=== PATIENT | male | born 1970 | race Caucasian/White ===

== ENCOUNTER 2017-06-30 15:44 | Inpatient (IN) | payer BC ==
[~2017-06-30] VITALS: Ht 182.9 cm; Wt 112.9 kg
--- NOTE | ~2017-06-30 | HEMODYNAMI ---
PATIENT:ALIS GOTTI JR MEDICAL RECORD: [id number] : 68 LOCATION:[facility] D.2140 ADMISSION DATE: 06/30/17 Generatedon:07/20/201715:52 Patient name: ALIS GOTTI Patient #: [id number] SSN: D OB: 1970 Date of study: 07/20/2017 Page: Of Hemodynamic Procedure Report Patient Data Patient Demographics Procedure consent was obtained First Name: ALIS Gender: Male Last Name: SHEN Suffix: Jr Saleem Initial: KELLY : 1970 Patient #: [id number] Age: 46 year(s) Race: Additional ID: [id number] Contact details Address: [address] [place] [address] [facility] State: [place] City: [facility] Zip code: [address] Past Medical History Allergies Allergen Reaction Date Comments Reported Codeine 03/19/2015 Admission Admission Data Admission Date: 06/30/2017 Admission Time: 21:09 Room #: D.2140 Procedure Procedure Types Cath Procedure Peripheral Cath Diagnostic Procedure Miscellaneous Procedure Description Procedure Date Procedure Date: 07/20/2017 Procedure Start Time: 15:12 Procedure Staff Name Function Ventura Hugo MD Performing Physician Jeimy Terrazas RT Scrub Evie He RN Nurse Stevan Valdez RT Monitor Procedure Data Cath Procedure Fluoroscopy Diagnostic fluoroscopy Total fluoroscopy Time: 3.9 time: 3.9 min min Diagnostic fluoroscopy Total fluoroscopy dose: 223 dose: 223 mGy mGy Contrast Material Contrast Material Type Amount (ml) Isovue 300 5 Diagnostic catheters Device Type Used For End Catheter Placement Diagnostic Infinity 5Fr MPA-2 catheter Procedure Medications Medication Administration Route Dosage Versed I.V. 1 mg Fentanyl I.V. 50 mcg Versed I.V. 1 mg Fentanyl I.V. 50 mcg Benadryl I.V. 50 mg Versed I.V. 1 mg Fentanyl I.V. 50 mcg Fentanyl I.V. 50 mcg Versed I.V. 1 mg Hemodynamics Rest Heart Rate: 94 (bpm) Snapshots Pre Cath Intra NCS Post Cath Vital Signs Time Heart Resp SPO2 etCO2 NIBP (mmHg) Rhythm Pain Sedation Rate (ipm) (%) (mmHg) Status Level (bpm) 15:01:51 93 18 99 0 118/81(95) NSR 0 (11) 10(A) , No pain 15:06:07 92 17 100 30.1 116/83(100) NSR 0 (11) 10(A) , No pain 15:10:22 93 13 100 30.8 119/79(100) NSR 0 (11) 10(A) , No pain 15:14:37 91 5 100 33.8 120/79(102) NSR 0 (11) 10(A) , No pain 15:18:54 96 13 100 35.4 120/76(102) NSR 0 (11) 10(A) , No pain 15:21:54 95 12 100 37.6 120/82(100) NSR 0 (11) 10(A) , No pain 15:26:12 98 13 100 14.3 124/72(102) NSR 0 (11) 10(A) , No pain 15:30:26 97 13 100 20.3 124/83(102) NSR 0 (11) 10(A) , No pain 15:34:42 100 12 100 31.6 116/85(100) NSR 0 (11) 10(A) , No pain 15:38:54 97 17 100 34.6 121/90(105) NSR 0 (11) 10(A) , No pain 15:43:05 98 12 100 22.5 134/89(107) NSR 0 (11) 10(A) , No pain 15:47:24 96 12 100 23.3 126/90(106) NSR 0 (11) 10(A) , No pain 15:51:40 100 31.6 132/92(101) NSR 0 (11) 10(A) , No pain Medications Time Medication Route Dose Verified Delivered Reason Notes Effectivene ss by by 15:12:09 Versed I.V. 1 mg Ventura Case for Bethel He RN sedation 15:12:24 Fentanyl I.V. 50 Ventura Case for mcg Bethel He RN sedation 15:14:33 Versed I.V. 1 mg Ventura Evie for Bethel Gomezr RN sedation 15:14:42 Fentanyl I.V. 50 Ventura Evie for mcg Bethel Neri RN sedation 15:20:33 Benadryl I.V. 50 mg Ventura Evie for Bethel Neri RN sedation 15:20:41 Versed I.V. 1 mg Ventura Evie for Bethel Neri RN sedation 15:20:51 Fentanyl I.V. 50 Ventura Evie for mcg Bethel Neri RN sedation 15:31:22 Fentanyl I.V. 50 Ventura Evie for mcg Bethel Neri RN sedation 15:31:34 Versed I.V. 1 mg Ventura Evie for Bethel Neri RN sedation Procedure Log Time Note 14:36:08 Jeimy Terrazas RT (R) (CV) sent for patient. Start room use. 14:36:18 Time tracking: Regular hours 14:36:22 Plan of Care:Hemodynamics will remain stable., Cardiac rhythm will remain stable., Comfort level will be maintained., Respiratory function will remain adequate., Patient/ family verbilizes understanding of procedure., Procedure tolerated without complication., Recovers from procedure without complications.. 14:36:29 Patient received from [employer] to IR Alert and oriented. Tansferred to table in Supine position. 14:36:30 Correct patient and procedure confirmed by team. 14:36:32 Signed procedure consent form obtained from patient. 14:36:33 ECG and BP/O2 sat monitors applied to patient. 14:36:35 Full Disclosure recording started 14:36:35 - 14:36:38 H&P Date Dictated: 07/20/2017 Within 30 days and on chart.. 14:36:39 Pre-procedure instructions explained to patient. 14:36:39 Pre-op teaching completed and patient verbalized understanding. 14:36:41 Family unavailable. 14:36:43 Patient NPO since Midnight. 14:36:47 Is the patient allergic to Iodine/contrast media? No. 14:36:49 Is patient on blood thinner?No 14:37:31 If diabetic: On Metformin? No 14:37:33 - 14:37:34 ----Pre-sedation anethsthesia assessment.---- 14:37:36 Previous problem with sedation/anesthesia? No ? 14:37:38 Snore? Yes 14:37:39 Sleep apnea? No 14:37:41 Deviated septum? No 14:37:43 Opens mouth fully? No 14:37:44 Sticks out tongue? Yes 14:37:47 Airway obstruction? No ? 14:37:52 Airway obstruction? No ? 14:37:56 Airway obstruction? No ? 14:38:01 Dentures? No ? 14:38:14 Patient pain scale 0/10 ?. 14:38:21 Use device set IR Diagnostic 14:38:23 Sterile Angiographic Pack opened to sterile field. 14:38:24 Bag Decanter opened to sterile field. 15:00:42 ECG and BP/O2 sat monitors applied to patient. 15:00:43 Vital chart was started 15:00:45 Baseline sample Acquired. 15:00:58 IV patent on arrival in left antecubital with 0.9% NaCl at KVO. 15:00:59 Sharps counted by scrub and verified by R.N. 15:01:00 Alarms reviewed by R. N. 15:01:07 Right neck area was prepped with chlora-prep and draped in sterile fashion 15:11:01 Physician arrived 15:11:02 --------ALL STOP TIME OUT------ 15:11:03 Final Timeout: patient, procedure, and site verified with staff and physician. All members of the team are in agreement. 15:11:07 Right neck site verified by team. 15:11:11 Physical assessment completed. ASA score P 3 - A patient with severe systemic disease as per Ventura Hugo MD. 15:11:15 Sedation plan: IV Moderate Sedation Versed, Fentanyl 15:12:09 Versed 1 mg I.V. was administered by Evie He RN; for sedation; 15:12:20 Procedure started. 15:12:24 Fentanyl 50 mcg I.V. was administered by Evie He RN; for sedation ; 15:12:24 Local anesthetic to right IJ vein with Lidocaine 1% by Ventura Hugo MD.INITIAL ACCESS ONLY 15:12:42 A Diagnostic Infinity 5Fr MPA-2 catheter was advanced over the wire and used for . 15:12:43 KIT LIVER ACCESS BIOPSY W/19GX6 opened to sterile field. 15:12:44 Cook BENTSON 145cm guide wire opened to sterile field. 15:12:46 Terumo 6Fr [place] Sheath opened to sterile field. 15:12:47 Micropuncture VSI 4FR kit opened to sterile field. 15:14:33 Versed 1 mg I.V. was administered by Evie He RN; for sedation; 15:14:42 Fentanyl 50 mcg I.V. was administered by Evie He RN; for sedation ; 15:18:16 [place] [employer] AMPLATZ 260CM SHORT TAPER guide wire opened to sterile field . 15:20:33 Benadryl 50 mg I.V. was administered by Evie He RN; for sedation; 15:20:41 Versed 1 mg I.V. was administered by Evie He RN; for sedation; 15:20:51 Fentanyl 50 mcg I.V. was administered by Evie He RN; for sedation ; 15:31:22 Fentanyl 50 mcg I.V. was administered by Evie He RN; for sedation ; 15:31:34 Versed 1 mg I.V. was administered by Evie He RN; for sedation; 15:38:54 Procedure ended.(Physican Out) 15:39:17 Fluoroscopy time 03.90 minutes. 15:39:20 Fluoroscopy dose: 223 mGy 15:39:20 Flurop Dose total: 223 15:39:24 Contrast amount:Isovue 300 5ml. 15:39:26 Sharps counted by scrub and verified by R.N. 15:39:27 Insertion/operative site no bleeding no hematoma. 15:39:48 Post-op/insertion site Right Jugular vein dressed using a 4 x 4 and Tegaderm. 15:39:54 Post right IJ vein:stable 15:40:01 Post-procedure physical assessment completed. ASA score P 3 - A patient with severe systemic disease as per Ventura Hugo MD. 15:40:03 Post procedure instruction explained to patient.Patient verbalizes understanding. 15:40:05 Patient needs reinforcement of post procedure teaching. 15:40:06 Procedure and supply charges have been captured, reviewed, submitted an d are correct. 15:52:02 Report given to [facility]. 15:52:21 Patient transfered to [facility] with Bed. 15:52:42 Vital chart was stopped Device Usage Item Name Manufacture Quantity Catalog Hospital Part Current Minima l Lot# / Number Charge Number Stock Stock Serial# Code Sterile Cardinal 1 [id number] [id number] 5 Angiographic Health Pack Bag Decanter Microtek 1 [id number] 75411 235701 5 Medical Inc. Diagnostic Cardinal 1 [id number] 524114 [id number] 5 Infinity 5Fr i.Sec MPA-2 catheter KIT LIVER [facility] 1 [id number] 659822 440241 5 ACCESS BIOPSY W/19GX6 Cook [employer] 1 [id number] 349044 [id number] 5 [id number] 145cm guide wire Terumo 6Fr Terumo 1 [id number] 925170 [id number] 40 [place] Sheath Micropuncture VSI VASCULAR 1 [id number] 600409 097620 5 VSI 4FR kit SOLUTIONS [place] [employer] [place] 1 [id number] 761824 975767 470979 5 [id number] AMPLATZ 260CM Scientific SHORT TAPER guide wire Signature Audit [place] Stage Time Signature Unsigned Intra-Procedure 07/20/2017 Stevan 3:52:39 PM Courtney RT (R) (CV) Signatures Monitor : Stevan Signature : Courtney RT Date : Time : [id number] [place] [address]
[~2017-06-30 15:44] MED LIST: ACETAMINOPHEN325 MG PO; AMITRIPTYLINE PO; DELZICOL400 MG PO; FLAGYL500 MG PO; FLORAJEN3 CAPS460 MG PO; FOLIC ACID1 MG PO; HYDROCHLOROTH12.5 M1 PO; HYDROCODON-ACE1 EAC7 PO; LEVAQUIN500 MG PO; LIBRIUM25 MG PO; OMEPRAZOLE20 M1 PO; PAIN MEDICATION PO; PAXIL10 MG PO; PAXIL20 MG PO; PREPARATION H O57 GM TOPICAL; PRILOSEC20 MG PO; PRINIVIL20 MG PO; TENORMIN25 MG PO; THEREMS-M1 TAB PO; TOPROL XL50 MG PO; ULTRAM50 MG PO; VENTOLIN HFA18 GM INH; VITAMIN B-1100 M1 PO; ZESTRIL20 MG PO
[2017-06-30 17:48] LABS: HEMATOCRIT 33.3 % (42.0-54.0); HEMOGLOBIN 11.6 g/dL (13.5-17.5); MCHC 34.8 g/dL (31.0-37.0); MCV 100.6 fL (80.0-100.0); MEAN PLATELET VOLUME 10.1 fL (7.4-10.4); PLATELET COUNT 608 10x3/uL (130-400); RBC 3.31 10x6/uL (4.20-6.10); RDW 17.3 % (11.5-14.5); WBC 31.2 10x3/uL (4.8-10.8)
[2017-06-30 18:04] LABS: ALBUMIN 1.8 g/dL (3.4-5.0); ANION GAP 17.6 mmol/L (8-16); BILIRUBIN - TOTAL 13.31 mg/dL (0.2-1.3); CALCIUM 8.2 mg/dL (8.5-10.1); CARBON DIOXIDE 23.4 mmol/L (21.0-32.0); CREATININE - SERUM 3.4 mg/dL (0.6-1.3); PROTEIN - SERUM 5.6 g/dL (6.4-8.2)
[2017-06-30 18:16] LABS: EOSINOPHILS 2 % (0-7); LYMPHOCYTES 6 % (15-50); MONOCYTES 1 % (2-11); NEUTROPHILS 89 % (40-80); PLATELET ESTIMATE INCREASED; TARGET CELLS OCC
[2017-06-30 18:56] LABS: INR 1.5 (0.85-1.17)
[2017-06-30 19:01] LABS: APPEARANCE HAZY (CLEAR); BACTERIA MODERATE /hpf (NONE SEEN); BILIRUBIN 3+ (NEGATIVE); COLOR AMBER (YELLOW); GLUCOSE NEGATIVE (NEGATIVE); HYALINE CAST OCC /lpf (NONE SEEN); KETONE NEGATIVE (NEGATIVE); MUCUS <1+ /lpf (NONE SEEN); NITRITE NEGATIVE (NEGATIVE); PROTEIN NEGATIVE (NEGATIVE); RED CELLS - URINE 0-5 /hpf (0-5); WHITE CELLS - URINE 0-5 /hpf (0-5)
--- NOTE | 2017-06-30 21:20 | NUR ---
ADMISSION ASSESSMENT COMPLETE PER FLOW SHEET. ELLIE ER NURSE NOTIFIED PT IN ER BUT FURTHER CARE WOULD BE WITH HER. VSS AT THIS TIME. STATES WILL GIVE UPDATE LATER IF NEEDED.
--- NOTE | 2017-06-30 22:45 | NUR ---
INFORMED BY CLARIFIER, TANVI TO VISUALIZE THIS PATIENT AND DO AN ASSESSMENT ON THE PATIENT. JAUNDICE SKIN COLOR AND JAUNDICE IN THE SCLERA OF HIS EYES. AWAKE, ALERT ORIENTED X4. PUPILS EQUAL AND REACTIVE AT A 3MM BILATERALLY. WEARING GLASSES WITH LEFT LENS TAPE ON. PIV TO RT ARM WITH NS INFUSING @ 150ML/HR AND FLAGYL IV ABX @ 100ML/HR. IV SITE WNL. ABDOMEN DISTENDED. C/O PAIN TO ABDOMEN AND BACK @ A 7/10 ON NUMBER SCALE. PALPABLE PERIPHERAL PULSES X4. NON-PITTING EDEMA TO LE'S AT THE ANKLES. ELLIE-ER NURSE SPOKE WITH AND SHE HAD RECEIVED ORDERS FROM DR. ADAM FOR IV BUPRENEX WHEN SBP >100. ELLIE-ER NURSE MADE AWARE HE WAS IN PAIN AND PRESSURE CURRENTLY 96 SYSTOLIC. PATIENT MADE AWARE OF PAIN MED PARAMETERS. PATIENT REMAINS IN E-9 AND IS CONSIDERED AN ICU HOLD REMAINING IN THE ER WITH NURSE ELLIE.
[2017-06-30 22:57] VITALS: BP 95/62; BMI 35.3
[2017-07-01] VITALS (12 sets, daily range): BP systolic 89–107; BP diastolic 56–70; Ht 182.9 cm; Wt 112.9 kg
--- NOTE | 2017-07-01 04:25 | NUR ---
REASSESSMENT COMPLETED. SLIGHTLY LESS JAUNDICE TO SKIN AND SCLERA OF EYES. LAYING ON RT SIDE. RECEIVED PAIN MEDS AND IS HAVING SOME BACK PAIN RELIEF. RT WRIST/FA 20G PIV INTACT WITH NS @ 150ML/HR INFUSING WITHOUT DIFFICULTY. ER NURSES IN ROOM X2. UPDATE GIVEN TO ME. B/P 90'S/50'S. O2 SAT 100%. LUNG SOUNDS CLEAR TO AUSCULTATION. HYPOACTIVE BOWEL SOUNDS AND DISTENDED ABDOMEN. THANKFUL AND DENIES ANY NEEDS. PLUGGED IN CELL PHONE ONE REQUEST, OBLIGED. ELLIE ER NURSE SPOKE WITH AND IS CONTINUING CARE IN ER ROOM E-9.
[2017-07-01 05:01] LABS: BASOPHILS 0.1 % (0-2); EOSINOPHILS 0.8 % (0-7); HEMATOCRIT 30.2 % (42.0-54.0); HEMOGLOBIN 10.4 g/dL (13.5-17.5); IMMATURE GRANULOCYTES 0.5 % (0-5); LYMPHOCYTES 5.7 % (15-50); MCH 35.3 pg (26.0-34.0); MCHC 34.4 g/dL (31.0-37.0); MCV 102.4 fL (80.0-100.0); MEAN PLATELET VOLUME 9.9 fL (7.4-10.4); MONOCYTES 5.4 % (2-11); NEUTROPHILS 87.5 % (40-80); PLATELET COUNT 561 10x3/uL (130-400); RBC 2.95 10x6/uL (4.20-6.10); RDW 17.6 % (11.5-14.5); WBC 28.7 10x3/uL (4.8-10.8)
[2017-07-01 05:10] LABS: INR 1.63 (0.85-1.17); PROTIME 19.3 SECONDS (11.6-15.0)
[2017-07-01 05:32] LABS: ALBUMIN 1.6 g/dL (3.4-5.0); ANION GAP 16.7 mmol/L (8-16); BILIRUBIN - TOTAL 11.75 mg/dL (0.2-1.3); CALCIUM 7.3 mg/dL (8.5-10.1); CARBON DIOXIDE 20.4 mmol/L (21.0-32.0); CREATININE - SERUM 2.9 mg/dL (0.6-1.3); PROTEIN - SERUM 5.4 g/dL (6.4-8.2)
[2017-07-01 05:33] LABS: POTASSIUM - SERUM 4.1 mmol/L (3.5-5.1)
--- NOTE | 2017-07-01 12:45 | NUR ---
PT ARRIVED BY WHEELCHAIR. AMBULATED TO BED. SET UP IN ROOM WITH CALL LIGHT. ASSESSMENT COMPLETED. VSS AT THIS TIME. PT IN ENTERIC PRECAUTIONS FOR HX OF CDT.
--- NOTE | 2017-07-01 14:22 | NUR ---
VOICE AT BED SIDE. PT DENIES PAIN VERBALLY. CALL LIGHT IN REACH. WILL CONT POC
[2017-07-01 17:14] LABS: ANION GAP 15.4 mmol/L (8-16); CALCIUM 7.7 mg/dL (8.5-10.1); CARBON DIOXIDE 20.2 mmol/L (21.0-32.0); CREATININE - SERUM 2.3 mg/dL (0.6-1.3); PHOSPHOROUS 3.6 mg/dL (2.5-4.9); POTASSIUM - SERUM 3.6 mmol/L (3.5-5.1)
--- NOTE | 2017-07-01 17:52 | NUR ---
NO CHANGES FROM PREVIOUS ASSESSMENT. NO C/O PAIN. FULL LIQUID PROVIED FOR PT. CALL LIGHT IN REACH. WILL CONT POC
--- NOTE | 2017-07-01 18:47 | NUR ---
PT RESTING IN BED. BREATHING NORMAL AND UNLABORED. CALL LIGHT IN REACH. WILL CONT POC
--- NOTE | 2017-07-01 19:00 | NUR ---
1899: Pt resting HOB >30 degrees with eyes open. Pt pupils KAYLYN+ bilat. SMCx4 = bilat. Pt c/o chronic back pain and rates 5-6/10. Pt breathing RA RR16x with SPO2 97%. Pt S1S2 regular 90's on CM. Right arm PIV with NS 150 cc/hr. ABD soft NT BSx4 active. Pt c/o diarrhea at this time.
--- NOTE | 2017-07-01 19:45 | NUR ---
1944: Pt assisted up OOB to commode. Pt gait and balance steady. Pt had large liquid BM. Pt returned back to bed without difficulty. All monitors and alarms attached.
--- NOTE | 2017-07-01 20:00 | NUR ---
2000: Pt c/o back pain. Pt states he has chronic back pain. Admin Rx as per EMAR.
--- NOTE | 2017-07-01 21:00 | NUR ---
2100: Pt SBP 80-90's at this time. MAP >65. NS remains 150 cc/hr.
--- NOTE | 2017-07-01 22:00 | NUR ---
2200: No change in pt RESP/CV/NV status. Pt appears to sleeping at times, but is easily arousable. Pt without c/o at this time.
[2017-07-02] VITALS (23 sets, daily range): BP systolic 84–119; BP diastolic 45–80
--- NOTE | 2017-07-02 | NUR ---
0000: No change in pt RESP/CV/NV status. No change in IVF. Pt c/o "heartburn " at this time. Pt states he normally takes medication for heartburn. D/W pt and verbalized understanding.
--- NOTE | 2017-07-02 04:00 | NUR ---
0400: Pt cont c/o heartburn. Provided Atnyfw-Daiwj-Mrww, repositoned, and reassured at this time. No change in IVF/UOP. Pt SBP remains 80-90's with MAP >60.
[2017-07-02 04:31] LABS: BASOPHILS 0.1 % (0-2); EOSINOPHILS 1.2 % (0-7); HEMATOCRIT 30.6 % (42.0-54.0); HEMOGLOBIN 10.4 g/dL (13.5-17.5); IMMATURE GRANULOCYTES 0.6 % (0-5); LYMPHOCYTES 6.7 % (15-50); MCH 35.3 pg (26.0-34.0); MCV 103.7 fL (80.0-100.0); MEAN PLATELET VOLUME 10.4 fL (7.4-10.4); MONOCYTES 5.9 % (2-11); NEUTROPHILS 85.5 % (40-80); PLATELET COUNT 595 10x3/uL (130-400); RBC 2.95 10x6/uL (4.20-6.10); RDW 17.2 % (11.5-14.5); WBC 30.3 10x3/uL (4.8-10.8)
[2017-07-02 04:50] LABS: ALBUMIN 1.8 g/dL (3.4-5.0); ANION GAP 15.1 mmol/L (8-16); BILIRUBIN - TOTAL 11.76 mg/dL (0.2-1.3); CALCIUM 7.6 mg/dL (8.5-10.1); CARBON DIOXIDE 17.7 mmol/L (21.0-32.0); CREATININE - SERUM 2.2 mg/dL (0.6-1.3); POTASSIUM - SERUM 3.8 mmol/L (3.5-5.1); PROTEIN - SERUM 5.4 g/dL (6.4-8.2)
--- NOTE | 2017-07-02 06:00 | NUR ---
0600: Pt remains resting in bed with eyes closed. Pt SR/ST 90-100 with SBP 90's at this time. MAP remains >60.
--- NOTE | 2017-07-02 10:00 | NUR ---
PT C/O BACK PAIN 03/19 - LATHA NATH ON UINT - ORDERED IV DULADID - CALLED PHARMACY TO RELEASE RX - CPOC
[2017-07-02 10:12] LABS: HEPATITIS C ANTIBODY <0.1 (0.0-0.9)
--- NOTE | 2017-07-02 10:30 | NUR ---
PAGED DR. MCMAHAN FOR CENTRAL LINE PLACEMENT
--- NOTE | 2017-07-02 11:00 | NUR ---
ASSESSMENT COMPLETE - PT ASKED FOR CUP OF ICE - CPOC
--- NOTE | 2017-07-02 11:36 | NUR ---
PAGED DR. MCMAHAN FOR CENTRAL LINE - AWAITING CALL BACK
--- NOTE | 2017-07-02 12:00 | NUR ---
FAMILY AT BEDSIDE FOR ASSESSMENT - LUNCH TRAY GIVEN TO PT - PT ASKED FOR REGULAR DIET - EXPLAINED MD WILL DISCUSS THIS WITH PT - CPOC
--- NOTE | 2017-07-02 13:50 | NUR ---
PT UP TO BSC - SCANT LIQUID STOOL - ABLE TO OBTAIN URINE SAMPLE FOR LAB - CPOC
[2017-07-02 14:12] LABS: CREATININE - URINE 197.1 mg/dL (30-125); PROTEIN - URINE 53.4 mg/dL (0.0-11.9)
--- NOTE | 2017-07-02 16:27 | NUR ---
I&O COMPLETE - CPOC PT RESTING VOICED NO CONCERNS -
--- NOTE | 2017-07-02 16:28 | NUR ---
ROLF- PT C/O BACK PAIN 02/16 REQUETED PAIN MEDICATION - SEE MAR
--- NOTE | 2017-07-02 18:00 | NUR ---
FAMILY AT BEDSIDE - PT RESTING -INSTRUCTED PT TO USE URNIAL IF POSSIBLE. PT VERABLIZED UNDERSTANDING CPOC
--- NOTE | 2017-07-02 19:18 | NUR ---
REPORT GIVEN TO ONCOMING RN
--- NOTE | 2017-07-02 20:00 | NUR ---
2000: Pt rec'd resting HOB 30 degrees with eyes open. Pupils KAYLYN+ bilat. SMCx4=bilat. Pt moves x4 extrem vs gravity. Pt breathing RA RR18x with SPO2 97%. Lungs clear bilat with auscultation. MMP and no cyanosis noted. Pt S1S2 regular ST 100's on CM. SBP remains 80-90's with MAP >65mmHG. PPPx4=bilat. Lower extrem generalized edema noted. ABD distended and BS x4 active. Pt has periodic liquid stools. Pt c/o "indigestion" that he states is chronic. Pt also c/o back pain that again is chronic. Pt denies difficulty with elimination. Pt face with "yellowish" jaundiced appearence.
--- NOTE | 2017-07-02 21:00 | NUR ---
2100: Pain Rx reviewed with patient. Pt verbalized understanding. Pt provided water, jello, and pain Rx at this time. Pt remains ST 100's on CM with SBP 90's and MAP >65. NAHCO3- gtt remains to right hand PIV.
[2017-07-03] VITALS (24 sets, daily range): BP systolic 79–124; BP diastolic 42–87
--- NOTE | 2017-07-03 | NUR ---
0000: Pt assisted up OOB. Pt gait steady. Pt used bedside coomode. Liquid BM noted. Pt remains ST 100's with SBP 90.
--- NOTE | 2017-07-03 06:00 | NUR ---
0600: Pt remains in bed with eyes closed at this time. Pt remains ST 100's with SBP >90 and MAP >65. UOP as per I/O. Pt does not voice need to urinate at this time. IVF continues unchanged and weight noted.
[2017-07-03 07:38] LABS: BASOPHILS 0.2 % (0-2); EOSINOPHILS 0.7 % (0-7); HEMATOCRIT 31.9 % (42.0-54.0); HEMOGLOBIN 10.8 g/dL (13.5-17.5); IMMATURE GRANULOCYTES 0.6 % (0-5); LYMPHOCYTES 4.5 % (15-50); MCH 35.8 pg (26.0-34.0); MCHC 33.9 g/dL (31.0-37.0); MCV 105.6 fL (80.0-100.0); MEAN PLATELET VOLUME 9.8 fL (7.4-10.4); MONOCYTES 5.2 % (2-11); NEUTROPHILS 88.8 % (40-80); PLATELET COUNT 554 10x3/uL (130-400); RBC 3.02 10x6/uL (4.20-6.10); RDW 16.9 % (11.5-14.5); WBC 30.9 10x3/uL (4.8-10.8)
[2017-07-03 07:51] LABS: ALBUMIN 1.8 g/dL (3.4-5.0); ANION GAP 16.1 mmol/L (8-16); BILIRUBIN - TOTAL 11.97 mg/dL (0.2-1.3); CALCIUM 7.5 mg/dL (8.5-10.1); CREATININE - SERUM 2.1 mg/dL (0.6-1.3); POTASSIUM - SERUM 4.1 mmol/L (3.5-5.1); PROTEIN - SERUM 5.5 g/dL (6.4-8.2)
--- NOTE | 2017-07-03 11:36 | NUR ---
0700 RECEIVED PT AWAKE IN BED, ALERT ORIENTED ABLE TO VOICE ALL WANTS AND NEEDS. NO COMPLAINTS OR DISTRESS NOTED AT THIS TIME, SEE INITAL ASSESSMENT. 0730 SMALL AMOUNT OF DARK MORALES URINE NOTED IN URINAL 150ML EMPTIED 0830 COMPLAINED OF BACK PAIN, PRN DILAUDID GIVEN WITH MORNING MEDS 0900 PRN PAIN MEDS EFFECTIVE, PIV INFILTRATED, PT HAS NO VEINS, STUCK MULTIPLE TIMES PREVIOUS DAY FOR PIV AND STUCK MULTIPLE TIMES THIS AM FOR LABS. PCP IN UNIT AND NEW ORDER TO CONSULT SURGERY FOR CENTRAL LINE PLACEMENT. CONSENT PRINTED AND OBTAINED, SURGEON PAGED.
--- NOTE | 2017-07-03 19:15 | NUR ---
SHIFT ASSESSMENT COMPLETE. A&O X4. HE STATES THAT HE IS HAVING 7/10 PAIN DUE TO A BACK INJURY. REPOSITIONED FOR COMFORT. AWAITING DR. MCMAHAN TO PUT IN A CVL, NO CURRENT IV ACCESS. S1S2 AUDIBLE, HR 109 SINUS TACH. RR EVEN AND UNLABORED. HE STATES THAT HE HAS ASTHMA AND NORMALLY USES AN INHAILER AND WANTS THAT TO BE RESTARTED. ABD DISTENDED AND TENDER IN LEFT UPPER QUAD. BS ACTIVE X4. RADIAL AND PEDAL PULSES PALP. GENERALIZED SWELLING IN BOTH LOWER EXT. HE STATES THAT HE WANTS TO TAKE A BREAK FROM HIS SCD'S. SCD'S ARE CURRENTLY AT THE FOOT OF THE BED. REQUESTS WARM BLANKET, DELIVERED PROMPTLY. NO FURTHER REQUESTS AT THIS TIME. WILL CONT TO MONITOR.
--- NOTE | 2017-07-03 20:45 | NUR ---
DR. MCMAHAN AT BEDSIDE. AFTER ASSESSMENT HE STATES THAT HE FEELS IF THE PT DOES NOT NEED A CVL AT THIS TIME. PIV STARTED ON L FOREARM PER JOSI NAJERA RN. IV FLAGYL CHANGED TO PO PER DR. MCMAHAN. WILL CONT WITH POC.
--- NOTE | 2017-07-03 21:30 | NUR ---
PT SITTING UP IN BED EATING DINNER TRAY. NO COMPLAINTS AT THIS TIME. VSS. WILL CONT TO MONITOR.
--- NOTE | 2017-07-03 21:45 | NUR ---
AWAITING HOUSE SUP TO PULL FLAGYL. WILL CONT WITH POC.
--- NOTE | 2017-07-03 23:20 | NUR ---
RECALLED HOUSE SUP FOR PO FLAGYL. WILL CONT TO MONITOR.
--- NOTE | 2017-07-03 23:30 | NUR ---
REASSESSMENT COMPLETE. NO CHANGES AT THIS TIME. HE IS LYING ON HIS BACK WATCHING TV WITH NO SIGNS OF ACUTE DISTRESS. PAIN RAITING 3/10 IN HIS BACK. HE STATES THAT HE DOES NOT WANT ANY PAIN MEDS AT THIS TIME. REPOSITIONED FOR COMFORT. CALL LIGHT IN REACH. BED IN LOWEST POSITION. WILL CONT TO MONITOR.
[2017-07-04] VITALS (16 sets, daily range): BP systolic 90–117; BP diastolic 53–77
--- NOTE | 2017-07-04 01:15 | NUR ---
PT RATES HIS PAIN A 5/10 AFFECTING HIS SLEEP AND MOOD. HE STATES THAT HIS PAIN IS CONSTANT. REPOSITIONED TO LEFT SIDE AND ADMINISTERED PRN PAIN MEDICATION. WILL REASSESS PROMPTLY. VSS. NO FURTHER REQUESTS.
--- NOTE | 2017-07-04 03:30 | NUR ---
REASSESSMENT COMPLETE. NO CHANGES AT THIS TIME. VSS. PT RESTING PEACEFULLY WITH NO SIGNS OF DISTRESS NOTED. WILL CONT WITH POC.
--- NOTE | 2017-07-04 05:30 | NUR ---
REFILLED PT'S REFRESHMENTS. REPOSITIONED FOR COMFORT. VSS. NO FURTHER REQUESTS. WILL CONT WITH POC.
--- NOTE | 2017-07-04 07:15 | NUR ---
PT ALERT AND ORIENTED, VSS, DENIES PAIN, CONTINUES ON CONTACT ISOLATION FOR CDT, PIV TO LEFT FOREARM DRESSING CDI, BICARB AT 150MLS/HR, DENIES PAIN AND ALL NEEDS, WILL CONTINUE TO MONITOR
[2017-07-04 08:09] LABS: ANA REFLEX - DIRECT Negative (Negative)
--- NOTE | 2017-07-04 09:00 | NUR ---
NO ACUTE CHANGES NOTED, VSS,DENIES PAIN AT THIS TIME, WILL CONTINUE TO MONITOR
--- NOTE | 2017-07-04 10:24 | NUR ---
NUTRITION F/U CHART REVIEWED. PT WITH 100% INTAKE RECENT MEALS. WILL CONTINUE TO PROVIDE CURRENT DIET, MONITOR INTAKE. RD FOLLOWING
--- NOTE | 2017-07-04 10:59 | NUR ---
PT REPOSITIONES SELF, DENIES ALL NEEDS, VOIDED 200ML CONCENTRATED URINE, WILL CONTINUE TO MONITOR
--- NOTE | 2017-07-04 12:27 | NUR ---
* Is the patient Alert and Oriented? Yes 0 * How many steps to enter\exit or inside your home? 5 0 * PCP Dr. Peguero 0 * Pharmacy [facility] 0 * Preadmission Environment Home Alone 0 * ADLs Independent 0 * Equipment Nebulizer 0 * List name and contact numbers for known caregivers / representatives who currently or will assist patient after discharge: Son Bryce PEREZ) Bryce [phone] 0 * Additional services required to return to the preadmission environment? No 0 * Can the patient safely return to the preadmission environment? Yes 0 * Has this patient been hospitalized within the prior 30 days at any hospital? Yes Patient Name: BRYCE GOTTI Admission Status: ER Accout number: [id number] Admission Date: 06-30-2017 : 1970 Admission Diagnosis:ENTEROCOLITIS DUE TO CLOSTRIDIUM DIFFICILE Attending: KELLY ADAM Current LOS: 4 Planned Disposition: Home Primary Insurance: [employer] Discharge Planning Comments: CM met with patient to assess dc plans/needs. patient states he lives alone & is independent with all ADL's & AIDL's. He states he has a home nebulizer but no other DME. He states his son, Emeterio & his bridger will be moving in with him at discharge. Discussed Home Health services with patient - declines at this time. CM will follow & assist as needed. Cloth Shrinking Machine Operator: Jenna Castrejon
--- NOTE | 2017-07-04 13:11 | NUR ---
PT REPOSITIONES SELF, VSS, BICARB DOWN TO 75ML/HR PER NEW ORDERS FROM [place], WILL CONTINUE TO MONITOR
--- NOTE | 2017-07-04 14:58 | NUR ---
PT TO TRANSFER TO ROOM 2140 REPORT CALLED TO YULY
--- NOTE | 2017-07-04 16:11 | NUR ---
ARRIVE TO ROOM VIA WHEELCHAIR. ALERT AND ORIENTED X4. AMBULATE TO BED. GAIT STEADY. FAMILY AT BEDISIDE. COMPLAINS OF ABDOMINAL PAIN. CONTINUE PAIN MANAGEMENT. INITIATE CONTACT ISOLATION PROTOCOL PER ORDER. CONTINUE PLAN OF CARE. BED LOCKED AND LOW. CALL LIGHT IN REACH. TWO SIDERAILS UP.
--- NOTE | 2017-07-04 21:45 | NUR ---
SHIFT ASSESSMENT COMPLETE. PT IS LYING ON HIS BACK AND COMPLAINING OF CHRONIC BACK PAIN AN 8/10, ACHING PAIN. REPOSITIONED FOR COMFORT. ADMINISTERED PRN PAIN MEDICATION. S1S2 AUDIBLE, HR 103. RR EVEN AND UNLABORED, CLEAR LUNG SOUNDS THROUGHOUT ALL LOBES. ABD IS SOFT AND NONTENDER TO TOUCH, BS ACTIVE X4. RADIAL PULSES PALP. LOWER EXT ARE SWOLLEN WITH GENERALIZED EDEMA. +4 EDEMA NOTED BILAT FEET. HE STATES THAT HIS SKIN FEELS VERY TIGHT AND THAT THE SWELLING HAS INCREASED FROM LAST NIGHT. TOLD HIM TO DECREASE HIS FLUIDS FOR THE NIGHT AND THAT I WOULD REASSESS Q 4 HRS. HE IS IN [employer] SPIRITS WITH NO REQUESTS AT THIS TIME. CALL LIGHT IN REACH. BED IN LOWEST POSITION. WILL CONT WITH POC.
[2017-07-05] VITALS: BP 110/65
--- NOTE | 2017-07-05 00:40 | NUR ---
REPOSITIONED PT FOR COMFORT ON L SIDE. PIV PATENT. NO FURTHER REQUESTS AT THIS TIME. CALL LIGHT IN REACH. WILL CONT WITH POC.
--- NOTE | 2017-07-05 02:37 | NUR ---
PT STATES THAT HE IS HAVING BACK PAIN 05/19. ADMINISTERED PRN PAIN MED. REPOSITOINED FOR COMFORT. DENIES ANY FURTHER REQUEST. WILL CONT WITH POC.
[2017-07-05 04:32] VITALS: BP 122/66
--- NOTE | 2017-07-05 04:57 | NUR ---
IV FLUIDS RAN OUT. SALINE LOC'D PT. AWAITING A NEW BAG OF NAHCO3 FROM PHARM IN AM. NEW TUBING, STICKER AND SWAB CAPS BY PT'S BED ON NIGHTSTAND. PT DENIES ANY REQUESTS. WILL CONT WITH POC.
[2017-07-05 05:42] LABS: BASOPHILS 0.1 % (0-2); EOSINOPHILS 0.5 % (0-7); HEMATOCRIT 30.6 % (42.0-54.0); HEMOGLOBIN 10.5 g/dL (13.5-17.5); IMMATURE GRANULOCYTES 0.5 % (0-5); MCH 35.2 pg (26.0-34.0); MCHC 34.3 g/dL (31.0-37.0); MCV 102.7 fL (80.0-100.0); MONOCYTES 6.4 % (2-11); NEUTROPHILS 87.5 % (40-80); PLATELET COUNT 592 10x3/uL (130-400); RBC 2.98 10x6/uL (4.20-6.10); RDW 16.5 % (11.5-14.5); WBC 27.6 10x3/uL (4.8-10.8)
[2017-07-05 06:02] LABS: ANION GAP 12.8 mmol/L (8-16); CALCIUM 7.6 mg/dL (8.5-10.1); CARBON DIOXIDE 23.1 mmol/L (21.0-32.0); CREATININE - SERUM 1.9 mg/dL (0.6-1.3); POTASSIUM - SERUM 3.9 mmol/L (3.5-5.1)
--- NOTE | 2017-07-05 06:31 | NUR ---
NAHCO3 UNAVAILABLE AT THIS TIME. WILL RESTART IV FLUIDS SHERRELL. WAITING OF PHARM.
--- NOTE | 2017-07-05 07:36 | NUR ---
RECIEVED REPORT ONPATIENT, PATIENT IS SLEEPING AT THIS TIME, NAD NOTED. PATIENT HAS A L FA IV THAT IS SL AT THIS TIME, WAITING ON PHARMACY TO BRING UP SODIUM BICARB. BED IS LOW AND LOCKED AT THIS TIME. WILL CONT TO MONITOR PATIENT. CPOC
[2017-07-05 08:48] VITALS: BP 119/72
[2017-07-05 12:04] VITALS: BP 98/54
[2017-07-05 12:19] LABS: ALBUMIN 1.7 g/dL (3.4-5.0); BILIRUBIN - DIRECT 8.22 mg/dL (0.00-0.30); BILIRUBIN - INDIRECT 2.05 mg/dL (0.00-1.00); BILIRUBIN - TOTAL 10.27 mg/dL (0.2-1.3); PROTEIN - SERUM 5.1 g/dL (6.4-8.2)
--- NOTE | 2017-07-05 13:09 | NUR ---
Nutrition Follow Up: Pt is eating 96% meal avg on a renal GI soft diet. Wt gain since admit. +BM 07/03/17. Labs reviewed. Meds noted including Flagyl. Rec changing diet to regular GI soft diet. RD following.
--- NOTE | 2017-07-05 13:30 | NUR ---
PATIENT REQUESTING PAIN MEDICATION, PATIENT DILUADID WAS DC. EXPLAINED TO PATIENT THAT THEY CHANGED MEDICATION TO BUPRENEX, BUT THAT PATIENT COULD NOT HAVE DUE TO BEING HYPOTENSIVE. PER DR CHURCH WILL RECHECK BP IN A FEW HOURS AND IF NORMAL WILL GIVE. CPOC
--- NOTE | 2017-07-05 14:05 | NUR ---
PATIENT REQUESTING PRN UPDRAFT. RESPIRATORY AT BEDSIDE. CPOC
--- NOTE | 2017-07-05 14:05 | NUR ---
GAVE TX PRN ORDERED BY
[2017-07-05 16:17] VITALS: BP 109/68
--- NOTE | 2017-07-05 16:20 | NUR ---
BUPRENEX GIVEN FOR PAIN 8/10 IN BACK. WILL CONT TO MONITOR PATIENT. CPOC
--- NOTE | 2017-07-05 18:27 | NUR ---
PATIENT VISITING WITH FAMILY, PAIN 5/10 STATES IT IS GETTING BETTER, DENIES ANY NEEDS. CPOC
--- NOTE | 2017-07-05 19:37 | NUR ---
PT SITTING UP IN BED DENIES NEEDS AT THIS TIME WILL CONTINUE TO MONITOR
[2017-07-05 21:18] VITALS: BP 114/68
--- NOTE | 2017-07-06 03:01 | NUR ---
PT LYING IN BED, EYES CLOSED, RESPIRATIONS EVEN AND UNLABORED. CONTINUE TO MONITOR CLOSELY. BED LOW, CALL LIGHT IN REACH, SIDE RAILS X 2, HOB 20 - 30 DEGREES.
[2017-07-06 06:18] LABS: BASOPHILS 0.1 % (0-2); EOSINOPHILS 0.6 % (0-7); HEMATOCRIT 29.9 % (42.0-54.0); HEMOGLOBIN 10.4 g/dL (13.5-17.5); IMMATURE GRANULOCYTES 0.5 % (0-5); LYMPHOCYTES 5.5 % (15-50); MCH 35.6 pg (26.0-34.0); MCHC 34.8 g/dL (31.0-37.0); MCV 102.4 fL (80.0-100.0); MEAN PLATELET VOLUME 9.9 fL (7.4-10.4); MONOCYTES 6.8 % (2-11); NEUTROPHILS 86.5 % (40-80); PLATELET COUNT 533 10x3/uL (130-400); RBC 2.92 10x6/uL (4.20-6.10); RDW 16.8 % (11.5-14.5); WBC 26.5 10x3/uL (4.8-10.8)
[2017-07-06 06:37] LABS: ALBUMIN 1.5 g/dL (3.4-5.0); ANION GAP 14.4 mmol/L (8-16); BILIRUBIN - TOTAL 9.7 mg/dL (0.2-1.3); CALCIUM 7.6 mg/dL (8.5-10.1); CARBON DIOXIDE 23.7 mmol/L (21.0-32.0); CREATININE - SERUM 1.9 mg/dL (0.6-1.3); POTASSIUM - SERUM 4.1 mmol/L (3.5-5.1); PROTEIN - SERUM 4.5 g/dL (6.4-8.2)
--- NOTE | 2017-07-06 08:00 | NUR ---
AM ROUNDS - PT IS IN BED AND AWAKE AT THIS TIME. PT IS ON CONTACT ISOLATION. A&O. IV TO LEFT FA, SL. PT IS ON ROOM AIR. BED AT LOWEST POSITON. CALL DE LEÓN IN USE/REACH. SIDE RAILS UP X2. WILL CONTINUE TO MONITOR
[2017-07-06 08:15] VITALS: BP 111/74
[2017-07-06 12:04] VITALS: BP 127/69
[2017-07-06 16:54] VITALS: BP 114/73
--- NOTE | 2017-07-06 18:29 | NUR ---
PT IN BED WITH FAMILY AT BEDSIDE. WILL CONTINUE TO MONITOR
[2017-07-06 19:00] VITALS: BP 104/67
--- NOTE | 2017-07-06 19:30 | NUR ---
AWAKE TALKING TO VISITORS PRESENT IN ROOM. DENIES PAIN OR ANY NEEDS. IN CONTACT ISOLATION FOR CDIF. IV IN L FA INTACT SL. HAS CALL LIGHT IN REACH.
--- NOTE | 2017-07-06 20:55 | NUR ---
ADMIN SCHED MEDS AND PHENERGAN 25MG PO PER REQUEST FOR C/O NAUSEA. REQUESTED LIGHTS OFF TO SLEEP.
[2017-07-07] VITALS (11 sets, daily range): BP systolic 96–125; BP diastolic 52–79
[2017-07-07 05:32] LABS: BASOPHILS 0.2 % (0-2); EOSINOPHILS 0.8 % (0-7); HEMATOCRIT 29.7 % (42.0-54.0); HEMOGLOBIN 10.4 g/dL (13.5-17.5); IMMATURE GRANULOCYTES 0.5 % (0-5); LYMPHOCYTES 4.6 % (15-50); MCH 35.7 pg (26.0-34.0); MCV 102.1 fL (80.0-100.0); MEAN PLATELET VOLUME 9.7 fL (7.4-10.4); MONOCYTES 6.9 % (2-11); PLATELET COUNT 516 10x3/uL (130-400); RBC 2.91 10x6/uL (4.20-6.10); RDW 16.6 % (11.5-14.5); WBC 30.8 10x3/uL (4.8-10.8)
[2017-07-07 05:47] LABS: ALBUMIN 1.5 g/dL (3.4-5.0); BILIRUBIN - TOTAL 9.3 mg/dL (0.2-1.3); CALCIUM 7.9 mg/dL (8.5-10.1); CARBON DIOXIDE 23.2 mmol/L (21.0-32.0); CREATININE - SERUM 1.9 mg/dL (0.6-1.3); POTASSIUM - SERUM 4.2 mmol/L (3.5-5.1); PROTEIN - SERUM 4.5 g/dL (6.4-8.2)
--- NOTE | 2017-07-07 06:02 | NUR ---
GAVE INSTRUCTIONS TO DRINK GI PREP GOLYTELY.
--- NOTE | 2017-07-07 08:02 | NUR ---
AM ROUNDING- RECIEVED REPORT FROM FLIGHT TEST DATA ACQUISITION TECHNICIAN NURSE SUSHANT. PT IS CURRENLTY SITTING UP IN BED WITH EYES OPEN RESTING RECIEVING A BREATHING TX. IN CONTACT ISOLATION FOR C.DIFF PER REPORT. ON ROOM AIR. NO MONITOR. IV SEEN TO LEFT FOREARM THAT IS CURRENTLY SALINE LOCKED. PT IS BEING ENCOURAGED TO DRINK GOLYTELY PER ORDER FOR COLONOSCOPY TODAY. PT STATES HE HAS BEEN WORKING ON IT. PT IS C/O ABDOMEN HURTING. PTS ABDOMEN IS DISTENDED. NO NEED AT THIS CURRENT TIME. WILL CONTINUE TO MONITOR AND CONTINUE WITH PLAN OF CARE.
[2017-07-07 09:37] LABS: APTT 52.8 SECONDS (22.8-39.4); INR 2.12 (0.85-1.17); PROTIME 23.8 SECONDS (11.6-15.0)
--- NOTE | 2017-07-07 10:28 | NUR ---
PT LAYING IN BED WITH EYES OPEN RESTING. PT STATES HE IS NAUSEOUS AND IS IN PAIN. THIS NURSE TX PT WITH ZOFRAN ORDERED AND NORCO ORDERED. PT STATES HE DOES NOT KNOW HOW MUCH MORE GOOLYTELY HE CAN HANDLE DUE TO HIS STOMACH BEING UPSET. I ENCOURAGED PT TO DRINK MUCH HE CAN FOR PROCEDURE. PT WANTED ME TO LOOK AT STOOL IN BATHROOM TO SEE IF THAT WAS "CLEANED OUT ENOUGH". STOOL APPEARED BRIGHT YELLOW AND WATERY. NO FORMED STOOL SEEN. PT AGREES TO TRY AND DRINK MORE GOLYTELY TOLERATED. WILL CONTINUE TO MONITOR.
--- NOTE | 2017-07-07 12:52 | NUR ---
SHELLEY, IN SPECIALS STATES THAT THEY WILL BE COMING TO GET PT SOON FOR PARACENTESIS. SHELLEY STATES THAT OTHER THAN THE 1/2NS PT DOES NOT NEED ANY OTHER PRE-OP MEDICATIONS BECAUSE THEY ARE GIVING HIM MODERATE SEDATION. IV FLUID WITH TUBING IS HUNG AND IN PTS ROOM AND ORDERED WITH EXTENTION SET REQUESTED.
--- NOTE | 2017-07-07 12:59 | NUR ---
1245- UPON ANSWERING EMERGENCY BATHROOM LIGHT, WATERY LIQUID STOOL SEEN ON PTS LINEN AND FLOOR LEADING UP TO BATHROOM WHERE PT IS. PT STATES HE COULDN'T HOLD IT AND HE SLIPPED AND FELL ON HIS BUTT WHERE WATERY STOOL WAS ON THE GROUND. PT STATES HE DID NOT HIT HIS HEAD. ENE BLACKWELL IN ROOM WITH THIS NURSE. ENE BLACKWELL CHANGED PTS LINEN. THIS NURSE CLEANED FLOORS UP AND CLEANED PT UP. THIS NURSE ASSISTED PT BACK TO BED. PT IS AWARE TO NOT GET OOB UNLESS STAFF IS THERE TO ASSIST HIM. PT IS ALERT AND ORIENTED. PT IS UNABLE TO WEAR NON-SKID SOCKS DUE TO +3 PITTING EDEMA TO LOWER EXTREMITIES. BED IS IN LOW POSITION, SIDE RAILS ARE UP X2, AND CALL LIGHT IS IN REACH. WILL CONTINUE TO MONITOR.
--- NOTE | 2017-07-07 13:05 | NUR ---
PT TO PARACENTESIS VIA BED.
--- NOTE | 2017-07-07 13:30 | NUR ---
PAGED VOISE TO INFORM HIM THAT PT JUST WENT FOR PARACENTESIS ORDERED. WILL AWAIT CALLBACK.
--- NOTE | 2017-07-07 13:31 | NUR ---
RECIEVED IMMEDIATE CALLBACK FROM DR. TEJADA. INFORMED HIM THAT PT JUST WENT FOR PARACENTESIS. DR. TEJADA NOW AWARE.
--- NOTE | 2017-07-07 13:55 | NUR ---
YELLOW ID BAND PLACED ON PT PER FALL PRECAUTION. PT IS ALERT AND ORIENTED. PT HAS POOR BALANCE DUE TO SWELLING IN BILATERAL LOWER EXTREMITIES. PT IS AWARE OT ALERT STAFF WHEN NEEDING TO GO TO BATHROOM FOR STANDBY ASSISTANCE.
--- NOTE | 2017-07-07 14:26 | NUR ---
PT BACK FROM PARACENTESIS VIA BED.
[2017-07-07 15:29] LABS: NEUT - BF 48 %
[2017-07-07 15:30] LABS: EOS BF 1 %; MACROPHAGES BF 15 %; MESOTHELIALS BF 7 %
--- NOTE | 2017-07-07 15:35 | NUR ---
DR. BURNS HERE TO GET PT FOR COLONOSCOPY. I INFORMED DR. BURNS THAT NO ONE CALLED TO PRE-OP PT. DR. BURNS STATES TO JUST GIVE PT FAMOTIDINE ORDERED. PT TO PROCEDURE VIA BED.
--- NOTE | 2017-07-07 16:03 | NUR ---
STOOL STUDIES OBTAINED AND SENT TO LAB.
--- NOTE | 2017-07-07 16:34 | NUR ---
PT BACK FROM COLONOSCOPY VIA BED.
--- NOTE | 2017-07-07 16:50 | NUR ---
PT BACK FROM PROCEDURE. PT IS AWAKE AND ALERT. BP IS 98/60. HR IS 111. 02 SAT IS 97% ON ROOM AIR. TEMP IS 97.4. RR ARE 20BPM. NO NEED AT THIS CURRENT TIME. WILL CONTINUE TO MONITOR.
--- NOTE | 2017-07-07 18:47 | NUR ---
PT IS CURRENTLY SITTING UP IN BED WITH EYES OPEN RESTING. PT GIVEN PRN PAIN MEDIATION (BUPRENEX) AND PRN NAUSEA MEDICATION (PHENERGAN) ORDERED AND REQUESTED BY PT. NO FURTHER NEED AT THIS CURRENT TIME. WILL CONTINUE TO MONITOR AND CONTINUE WITH PLAN OF CARE.
--- NOTE | 2017-07-07 19:18 | NUR ---
PT IN BED WATCHING TELEVISION. DENIES NEEDS AT THIS TIME. WILL CONTINUE TO MONITOR.
[2017-07-08] VITALS: BP 109/66
[2017-07-08 04:00] VITALS: BP 111/67
[2017-07-08 05:58] LABS: BASOPHILS 0 % (0-2); EOSINOPHILS 0 % (0-7); HEMATOCRIT 32.2 % (42.0-54.0); HEMOGLOBIN 11.1 g/dL (13.5-17.5); IMMATURE GRANULOCYTES 0.6 % (0-5); LYMPHOCYTES 2.9 % (15-50); MCH 35.5 pg (26.0-34.0); MCHC 34.5 g/dL (31.0-37.0); MCV 102.9 fL (80.0-100.0); MONOCYTES 2.1 % (2-11); NEUTROPHILS 94.4 % (40-80); PLATELET COUNT 578 10x3/uL (130-400); RBC 3.13 10x6/uL (4.20-6.10); RDW 17.1 % (11.5-14.5)
[2017-07-08 06:18] LABS: ALBUMIN 1.6 g/dL (3.4-5.0); BILIRUBIN - TOTAL 9.2 mg/dL (0.2-1.3); CALCIUM 8.2 mg/dL (8.5-10.1); CARBON DIOXIDE 24.5 mmol/L (21.0-32.0); CREATININE - SERUM 2.1 mg/dL (0.6-1.3); POTASSIUM - SERUM 4.5 mmol/L (3.5-5.1)
--- NOTE | 2017-07-08 07:15 | NUR ---
REPORT RECIEVED. PT RESTING QUIELTY, PT DENIES NEEDS AT THIS TIME. ASSESSMENT PERFORMED. WILL CTM.
[2017-07-08 08:00] VITALS: BP 114/85
[2017-07-08 09:39] LABS: PROTEIN - BODY FLUID 1.4 G/DL
[2017-07-08 11:31] VITALS: BP 106/72
--- NOTE | 2017-07-08 13:37 | NUR ---
Nutrition Follow Up: Pt is currently NPO. Pt was eating 59% meal avg on a renal diet. Wt stable. +BM 07/07/17. Meds and labs reviewed. Rec resuming diet when medically feasible. RD following.
[2017-07-08 16:00] VITALS: BP 100/60
--- NOTE | 2017-07-08 17:00 | NUR ---
DR. TEJADA AT BEDSIDE DISCUSSING CARE WITH PT. GAVE VERBAL ORDER FOR COMPRESSION STOCKINGS. WILL ORDER AND PLACE ON PT PER ORDERS. WILL CTM.
--- NOTE | 2017-07-08 18:30 | NUR ---
REPORT RECIEVED. RR EVEN AND UNLABORED. GAVE PRN PAIN MEDS. PT DENIES OTHER NEEDS, WILL GIVE REPORT ON PT CONDITION FOR THE DAY.
--- NOTE | 2017-07-08 19:53 | NUR ---
PT HAS FAMILY IN ROOM. FAMILY FOLLOWING ISO PRECAUTIONS. PT STATES HE HAS PAIN 4/10 AND ASKS FOR PAIN MED WHEN IT IS DUE. TOLD PT I WILL BRING PAIN MED WITH NIGHT TIME MED PASS. PT GIVEN SLIP FREE SOCKS. PT VERBALIZED UNDERSTANDING WHEN DISCUSSING WEARING SLIP FREE SOCK OR SHOES AT ALL TIMES WHEN OUT OF BED TO PREVENT FALLS. PT DENIES ANY NEEDS. NO S/S OF DISTRESS. WILL CPOC
[2017-07-08 20:00] VITALS: BP 120/72
[2017-07-09] VITALS: BP 121/73
--- NOTE | 2017-07-09 02:00 | NUR ---
PT ASLEEP. RESPIRATIONS EVEN AND UNLABORED. NO S/S OF DISTRESS. WILL CPOC
[2017-07-09 04:00] VITALS: BP 116/71
[2017-07-09 05:43] LABS: BASOPHILS 0.1 % (0-2); EOSINOPHILS 0 % (0-7); HEMATOCRIT 31.9 % (42.0-54.0); IMMATURE GRANULOCYTES 0.6 % (0-5); MCH 35.4 pg (26.0-34.0); MCHC 34.5 g/dL (31.0-37.0); MCV 102.6 fL (80.0-100.0); MEAN PLATELET VOLUME 9.7 fL (7.4-10.4); MONOCYTES 2.6 % (2-11); NEUTROPHILS 93.7 % (40-80); PLATELET COUNT 520 10x3/uL (130-400); RBC 3.11 10x6/uL (4.20-6.10); RDW 16.8 % (11.5-14.5); WBC 36.2 10x3/uL (4.8-10.8)
[2017-07-09 06:00] LABS: ALBUMIN 1.8 g/dL (3.4-5.0); ANION GAP 13.3 mmol/L (8-16); BILIRUBIN - DIRECT 6.09 mg/dL (0.00-0.30); BILIRUBIN - INDIRECT 0.91 mg/dL (0.00-1.00); CALCIUM 7.9 mg/dL (8.5-10.1); CARBON DIOXIDE 24.2 mmol/L (21.0-32.0); CREATININE - SERUM 2.2 mg/dL (0.6-1.3); POTASSIUM - SERUM 4.5 mmol/L (3.5-5.1); PROTEIN - SERUM 5.1 g/dL (6.4-8.2)
--- NOTE | 2017-07-09 06:12 | NUR ---
PT GOT BLOOD DRAWN. PT SITTING UP IN BED. DENIES ANY NEEDS. NO S/S OF DISTRESS. WILL CPOC
--- NOTE | 2017-07-09 07:45 | NUR ---
AM ROUNDS COMPLETED. PT A&O SITTING UP IN BED RESTING QUIETLY. RR NONLABORED ON RA. SHIFT ASSESSMENT COMPLETED. PT DENIES ANY CURRENT NEEDS AT THIS TIME. CL IN REACH. WILL CPOC.
--- NOTE | 2017-07-09 08:00 | NUR ---
SHIFT ASSESSMENT COMPLETED HOWEVER COMPUTER DID NOT SAVE IT. WRITTEN HEAD-TO-TOE: PT A&O RR NONLABORED ON RA LUNGS CTA WITH SHALLOW BREATHING, ABDOMEN DISTENDED AND TIGHT WITH ACTIVE BS X4, PT STILL HAVING DIARRHEA STATES ABOUT 4-5 A DAY. HEART SOUNDS S1S2 NOTED RRR. PTS SKIN COLOR IS JAUNDICE ALL OVER WITH YELLOW EYES AND NO DRAINAGE NOTED. BILAT LE EXTREMELY SWOLLEN AND TENDER PT BARELY ALLOWED ME TO PALPATE DURING ASSESSMENT BUT PULSES ARE PALPABLE AND NORMAL. ENCOURAGED PT TO ELEVATE LEGS HOWEVER HE STATES ITS UNCOMFORTABLE AND PREFERS TO SIT UP IN BED. WILL APPLY ABELINO HOSE ORDERED TO PROMOTE CIRCULATION. PT DENIES ANY CURRENT NEEDS AT THIS TIME. CL IN REACH. WILL CPOC.
[2017-07-09 08:45] VITALS: BP 109/74
--- NOTE | 2017-07-09 11:20 | NUR ---
PT UP TO BR AND VOIDED BUT ACCIDENTLY MIXED IT WITH HIS STOOL BUT STATES HE WILL MAKE SURE TO NOT MIX THE NEXT ONE SO WE CAN SEND OFF SPECIMEN ORDERED. PTS L.AC PIV DRSG IS PEELING OFF. NEW ONE PLACED, DATED AND INTIALED. PT DENIES ANY FURTHER NEEDS AT THIS TIME. CL IN REACH. WILL CPOC.
[2017-07-09 12:40] VITALS: BP 136/91
[2017-07-09 15:57] LABS: APPEARANCE CLEAR (CLEAR); BILIRUBIN NEGATIVE (NEGATIVE); COLOR YELLOW (YELLOW); GLUCOSE NEGATIVE (NEGATIVE); KETONE NEGATIVE (NEGATIVE); NITRITE NEGATIVE (NEGATIVE); PROTEIN NEGATIVE (NEGATIVE); SPECIFIC GRAVITY 1.015 (1.005-1.020); UROBILINOGEN NORMAL (NORMAL)
[2017-07-09 16:12] LABS: PROTEIN - URINE 5.1 mg/dL (0.0-11.9)
[2017-07-09 16:24] VITALS: BP 113/80
--- NOTE | 2017-07-09 16:58 | NUR ---
ATTEMPTED TO PLACE ABELINO HOSE BUT THEY WERE WAY TOO TIGHT AND UNCOMFORTABLE FOR PT AND WERE OUR BIGGEST SIZE. PT STATES I'D RATHER JUST ELEVATE MY FEET THROUGHOUT THE DAY. I HAVE PREVIOUSLY SUGGESTED THIS HOWEVER PT DECLINED BUT NOW WANTS TO TRY. TEACHING PROVIDED AGAIN ON SWELLING AND ETIOLOGY AND TREATMENT MEASURES. PT ALSO TAUGHT ABOUT STRICT I&O AND STATES "NO ONE TOLD ME THAT OR HAS BEEN MONITERING MY OUTPUT" URINAL GIVEN TO PT AND IMPORTANCE TAUGHT ON STRICT ADHERENCE AND STATES HE WILL MAKE SURE TO MONITER IT AND LET US KNOW. PT DENIES ANY FURTHER NEEDS AT THIS TIME. CL IN REACH, BED IN LOWEST, SIDE RAILS X2. WILL CPOC.
--- NOTE | 2017-07-09 19:27 | NUR ---
RECEIVED REPORT, WILL ASSUME CARE OF PT, PT VISITING WITH FAMILY, BED IS LOW, SRX2, CALL LIGHT IN REACH, WILL CONTINUE PLAN OF CARE
[2017-07-09 20:00] VITALS: BP 118/73
--- NOTE | 2017-07-09 22:15 | NUR ---
PT COMPLAINS OF PAIN/NAUSA-GAVE BUPRENEX AND PHENERGAN ORDER
[2017-07-10] VITALS: BP 111/82
[2017-07-10 02:08] VITALS: BP 120/70
--- NOTE | 2017-07-10 03:24 | NUR ---
ASSESSMENT COMPLETE, SEE FLOWSHEET, PT SLEEPING, BED IS LOW, SRX2, CALL LIGHT IN REACH, WILL CONTINUE PLAN OF CARE
[2017-07-10 04:00] VITALS: BP 112/70
--- NOTE | 2017-07-10 05:37 | NUR ---
AWAKE AND RESTING IN BED. PT ADLIB IN ROOM. HAS BEEN EDUCATED BY PRIMARY NURSE ON NEED TO VOID IN URINAL FOR ACCURATE I AND O.
[2017-07-10 05:55] LABS: BASOPHILS 0.1 % (0-2); EOSINOPHILS 0 % (0-7); HEMOGLOBIN 11.3 g/dL (13.5-17.5); IMMATURE GRANULOCYTES 0.6 % (0-5); LYMPHOCYTES 1.8 % (15-50); MCH 35.2 pg (26.0-34.0); MCHC 34.2 g/dL (31.0-37.0); MCV 102.8 fL (80.0-100.0); MEAN PLATELET VOLUME 9.7 fL (7.4-10.4); MONOCYTES 4.4 % (2-11); NEUTROPHILS 93.1 % (40-80); PLATELET COUNT 497 10x3/uL (130-400); RBC 3.21 10x6/uL (4.20-6.10); RDW 16.4 % (11.5-14.5); WBC 38.1 10x3/uL (4.8-10.8)
[2017-07-10 06:06] LABS: CALCIUM 8.4 mg/dL (8.5-10.1); CARBON DIOXIDE 24.6 mmol/L (21.0-32.0); CREATININE - SERUM 2.2 mg/dL (0.6-1.3); POTASSIUM - SERUM 4.6 mmol/L (3.5-5.1)
--- NOTE | 2017-07-10 07:45 | NUR ---
AM ROUNDS COMPLETED. SHIFT ASSESSMENT COMPLETED, NO CHANGES NOTED FROM YESTERDAYS ASSESSMENT EXCEPT SLIGHT CHANGE IS LEG SWELLING HAS WENT DOWN. PT STILL EXTREMETLY SWOLLEN IN BILAT LEGS. ENCOURAGED PT TO KEEP THEM ELEVATED AND THEY ARE CURRENTLY ON 2 PILLOW WITH FOB RAISED. PT STATES THEY ARE FEELING A LITTLE BETTER AND HE CAN TELL A SLIGHT DIFFERENCE WELL. L.AC PIV PATENT WITH DRSG CDI AND SWAB CAPS IN USE. PTS ABDOMEN IS STILL TIGHT AND DISTENDED PT STATES HIS DIARRHEA HAS RESOLVED AND HE IS NOW HAVING SOFT SEMI FORMED STOOLS. PT DENIES ANY CURRENT NEEDS AT THIS TIME. CL IN REACH, BED IN LOWEST, SIDE RAILS X2. WILL CPOC.
[2017-07-10 08:00] VITALS: BP 127/75
[2017-07-10 11:00] VITALS: BP 130/77
[2017-07-10 15:04] VITALS: BP 133/71
--- NOTE | 2017-07-10 15:24 | NUR ---
PT CALLED REQUESTING PRN PAIN MEDICATION AND WAS PROVIDED WITH IT ALONG WITH POPCICLE. PT VOICED THANKS AND DENIES ANY FURTHER NEEDS AT THIS TIME. ENCOURAGED PT TO KEEP HIS FEET ELEVATED AND SOME SWELLING HAS WENT DOWN. CL IN REACH. WILL CPOC.
--- NOTE | 2017-07-10 17:21 | NUR ---
PROVIDED PT WITH PRN PAIN MEDICATION REQUESTED PT SITTING UP IN BED EATING DINNER WITH BILAT FEET ELEVATED. PT DENIES ANY FURTHER NEEDS AT THIS TIME. CL IN REACH, BED IN LOWEST, SIDE RAILS X2. WILL CPOC.
--- NOTE | 2017-07-10 19:45 | NUR ---
RECEIVED REPORT, WILL ASSUME CARE OF PT, WATCHING TV, DENIES ANY NEEDS, BED IS LOW, SRX2, CALL LIGHT IN REACH, WILL CONTINUE PLAN OF CARE
--- NOTE | 2017-07-11 03:31 | NUR ---
ASSESSMENT COMPLETE, SEE FLOWSHEET, PT SLEEPING, SRX2, CALL LIGHT IN REACH, WILL CONTINUE PLAN OF CARE
[2017-07-11 04:00] VITALS: BP 117/79
[2017-07-11 05:46] LABS: BASOPHILS 0 % (0-2); EOSINOPHILS 0 % (0-7); HEMATOCRIT 31.9 % (42.0-54.0); HEMOGLOBIN 11.3 g/dL (13.5-17.5); IMMATURE GRANULOCYTES 0.5 % (0-5); LYMPHOCYTES 1.4 % (15-50); MCH 36.3 pg (26.0-34.0); MCHC 35.4 g/dL (31.0-37.0); MCV 102.6 fL (80.0-100.0); MEAN PLATELET VOLUME 9.6 fL (7.4-10.4); NEUTROPHILS 94.1 % (40-80); PLATELET COUNT 438 10x3/uL (130-400); RBC 3.11 10x6/uL (4.20-6.10); RDW 16.5 % (11.5-14.5); WBC 35.2 10x3/uL (4.8-10.8)
[2017-07-11 05:47] LABS: INR 1.87 (0.85-1.17); PROTIME 21.5 SECONDS (11.6-15.0)
[2017-07-11 06:00] LABS: ALBUMIN 2.2 g/dL (3.4-5.0); ANION GAP 14.3 mmol/L (8-16); BILIRUBIN - TOTAL 5.33 mg/dL (0.2-1.3); C-REACTIVE PROTEIN 4.1 mg/dL (0.0-0.9); CARBON DIOXIDE 25.2 mmol/L (21.0-32.0); POTASSIUM - SERUM 4.5 mmol/L (3.5-5.1); PROTEIN - SERUM 5.4 g/dL (6.4-8.2)
[2017-07-11 08:00] VITALS: BP 110/65
--- NOTE | 2017-07-11 09:26 | NUR ---
MORNING MEDS GIVEN AND SHIFT ASSESSMENT COMPLETED. NO CHANGES FROM YESTERDAYS ASSESSMENT. PTS ABDOMEN STILL TIGHT AND DISTENDED, BILAT LE STILL VERY SWOLLEN AND PITTING. PULSES PALPABLE BUT PT C/O PAIN CONSTANTLY IN THEM. ELEVATED BILAT FEET ON 3 PILLOWS AND RAISED FOB PT STATES IT HELPS RELIEVE PRESSURE. PROVIDED PT WITH PRN PAIN MEDICATION REQUESTED AND THEN FLUSHED L.AC PIV. ALBUMIN RUNNING TO GRAVITY NOW AND PT RESTING QUIETLY IN BED. NO FURTHER NEEDS AT THIS TIME. WILL CPOC.
--- NOTE | 2017-07-11 10:47 | NUR ---
CALLED AND TALKED WITH RAZ FROM IC AND PT HAS MET CRITERIA TO BE OFF ISOLATION. PT HAS HAD FORMED STOOL AND IS OFF ANBX FOR C.DIFF. PT NOW FREE OF ISOLATION.
[2017-07-11 12:00] VITALS: BP 102/66
--- NOTE | 2017-07-11 13:03 | NUR ---
Nutrition Follow Up: Pt is eating 88% meal avg on a renal ADA diet. Wt stable. +BM 07/10/17. Labs reviewed. Meds noted including Lasix. Rec continue current diet. RD following.
--- NOTE | 2017-07-11 15:17 | NUR ---
PT CALLED REQUESTING PRN PAIN MEDICATION AND WAS PROVIDED WITH IT. PT RESTING QUIETLY IN BED WITH BILAT FEET ELEVATED DIRECTED. PROVIDED PT WITH JELLO SNACK TO TAKE ORAL ANBX. PT DENIES ANY FURTHER NEEDS AT THIS TIME. CL IN REACH, BED IN LOWEST, SIDE RAILS X2. WILL CPOC.
[2017-07-11 16:02] VITALS: BP 111/81
[2017-07-11 19:00] VITALS: BP 125/76
--- NOTE | 2017-07-11 20:04 | NUR ---
RECEIVED REPORT, WILL ASSUME CARE OF PT,PT WATCHING TV, DENIES ANY NEEDS AT THIS TIME, BED IS LOW, SRX2, CALL LIGHT IN REACH, WILL CONTINUE PLAN OF CARE
[2017-07-12] VITALS: BP 131/70
[2017-07-12 04:00] VITALS: BP 138/78
--- NOTE | 2017-07-12 04:07 | NUR ---
ASSESSMENT COMPLETE, SEE FLOWSHEET, PT SLEEPING, BED IS LOW, SRX2, CALL LIGHT IN REACH, WILL CONTINUE PLAN OF CARE
--- NOTE | 2017-07-12 04:27 | NUR ---
[employer]AVEL SERVICES PROFESSIONAL AT BEDSIDE TO OBTAIN VITALS, CALL LIGHT IN REACH. WILL CONTINUE WITH PLAN OF CARE.
[2017-07-12 04:45] LABS: BASOPHILS 0.1 % (0-2); EOSINOPHILS 0.2 % (0-7); HEMATOCRIT 32.2 % (42.0-54.0); IMMATURE GRANULOCYTES 0.6 % (0-5); LYMPHOCYTES 3.5 % (15-50); MCH 35.3 pg (26.0-34.0); MCHC 34.2 g/dL (31.0-37.0); MCV 103.2 fL (80.0-100.0); MEAN PLATELET VOLUME 9.7 fL (7.4-10.4); MONOCYTES 4.5 % (2-11); NEUTROPHILS 91.1 % (40-80); PLATELET COUNT 428 10x3/uL (130-400); RBC 3.12 10x6/uL (4.20-6.10); RDW 16.5 % (11.5-14.5); WBC 38.5 10x3/uL (4.8-10.8)
[2017-07-12 08:00] VITALS: BP 102/53
[2017-07-12 08:18] LABS: FOLATE (FOLIC ACID) - SERUM 4.2 ng/mL (>3.0)
--- NOTE | 2017-07-12 09:00 | NUR ---
ATTEMPTED TO FLUSH 22 GAUGE TO LEFT LATERAL AC. IV INFILTRATED, NOT PATENT. UNABLE TO LOCATE AREA FOR IV PLACEMENT, IV VASCULAR ACCESS NURSE COBY CONSULTED AT THIS TIME. WAITING FOR COBY TO ARRIVE FOR IV PLACEMENT.
--- NOTE | 2017-07-12 10:05 | NUR ---
20 GAUGE IV PLACED TO LEFT UPPER ARM VIA VASCUALAR NURSE USING ULTRASOUND. TAPED, DATED AND SECURED. TOLERATED IV PLACEMENT WELL. NO DISTRESS.
--- NOTE | 2017-07-12 10:26 | NUR ---
22 GAUGE IV REMOVED FROM LEFT LATERAL AC AREA. CATHETER TIP INTACT. NO BLEEDING FROM SITE. 2X2 GAUZE APPLIED AND SECURED WITH TAPE. PATIENT STATES THAT HIS IV HAS BEEN LEAKING FOR 2 DAYS. TOLERATED IV REMOVAL WELL.
[2017-07-12 12:03] VITALS: BP 85/58
[2017-07-12 15:54] VITALS: BP 111/60
--- NOTE | 2017-07-12 18:19 | NUR ---
MEDICATED FOR PAIN AT THIS TIME. NO DISTRESS.
--- NOTE | 2017-07-12 19:25 | NUR ---
RECEIVED REPORT, WILL ASSUME CARE OF PT, PT SLEEPING, BED IS LOW, SRX2, CALL LIGHT IN REACH, WILL CONTINUE PLAN OF CARE
[2017-07-12 20:09] VITALS: BP 109/67
--- NOTE | 2017-07-12 23:58 | NUR ---
COMPLAINS OF PAIN GAVE BUPRINEX ORDER
[2017-07-13] VITALS (11 sets, daily range): BP systolic 103–132; BP diastolic 47–76
--- NOTE | 2017-07-13 02:51 | NUR ---
ASSESSMENT COMPLETE, SEE FLOW SHEET, PT SLEEPING, BED IS LOW, SRX2, CALL LIGHT IN REACH, WILL CONTINUE PLAN OF CARE
--- NOTE | 2017-07-13 03:09 | NUR ---
PT LYING IN BED ON HIS BACK, SNORING, IN NO ACUTE DISTRESS. CONTINUE TO MONITOR PT CLOSELY. BED LOW, CALL LIGHT IN REACH, SIDE RAILS X 2, HOB 20 DEGREES.
[2017-07-13 05:26] LABS: BASOPHILS 0 % (0-2); EOSINOPHILS 0.1 % (0-7); HEMATOCRIT 29.5 % (42.0-54.0); HEMOGLOBIN 10.2 g/dL (13.5-17.5); IMMATURE GRANULOCYTES 0.4 % (0-5); LYMPHOCYTES 2.9 % (15-50); MCH 35.2 pg (26.0-34.0); MCHC 34.6 g/dL (31.0-37.0); MCV 101.7 fL (80.0-100.0); MEAN PLATELET VOLUME 9.4 fL (7.4-10.4); MONOCYTES 2.9 % (2-11); NEUTROPHILS 93.7 % (40-80); PLATELET COUNT 340 10x3/uL (130-400); RDW 16.1 % (11.5-14.5); WBC 34.9 10x3/uL (4.8-10.8)
[2017-07-13 05:39] LABS: ALBUMIN 1.9 g/dL (3.4-5.0); ANION GAP 13.3 mmol/L (8-16); BILIRUBIN - TOTAL 4.98 mg/dL (0.2-1.3); CARBON DIOXIDE 24.9 mmol/L (21.0-32.0); CREATININE - SERUM 1.8 mg/dL (0.6-1.3); POTASSIUM - SERUM 4.2 mmol/L (3.5-5.1)
--- NOTE | 2017-07-13 07:24 | NUR ---
AM ROUNDS- PT UP TO BATHROOM. DENIES ANY NEEDS AT THIS TIME. CALL LIGHT IN REACH, NAD NOTED, WILL CONTINUE TO MONITOR.
[2017-07-13 08:51] LABS: INR 2.03 (0.85-1.17)
--- NOTE | 2017-07-13 09:20 | NUR ---
ADMINISTERED SOLU-MEDROL AND 0.15MG OF BUPRENEX FOR PAIN LEVEL OF 7/10. PT DENIES ANY OTHER NEEDS AT THIS TIME. PT FIXING TO DO A SPONGE BATH. NAD NOTED, CALL LIGHT IN REACH, WILL CONTINUE TO MONITOR.
--- NOTE | 2017-07-13 10:37 | NUR ---
PT TO PARACENTESIS VIA BED, NAD NOTED.
--- NOTE | 2017-07-13 12:55 | NUR ---
PT TRANSFERED BACK TO ROOM, VITAL SIGNS STABLE, PT PLACED ON FREQUENT VITALS. PT DENIES ANY NEEDS AT THIS TIME. LUNCH TRAY PROVIDED TO PT. CALL LIGHT IN REACH, NAD NOTED, WILL CONTINUE TO MONITOR.
--- NOTE | 2017-07-13 14:00 | NUR ---
COBY POWER CALLED TO START IV ON PT. COBY STATED THAT SHE WOULD BE HERE SHORTLY.
[2017-07-13 15:59] LABS: MACROPHAGES BF 2 %; MESOTHELIALS BF 2 %; NEUT - BF 52 %
--- NOTE | 2017-07-13 16:16 | NUR ---
COBY POWER VASCULAR ACCESS NURSE STARTED NEW IV TO RT UPPER ARM. ADMINSITERED 0.15MG OF BUPRENEX, ALSO ADMINSTERED PEPCID, AND SOLU-MEDROL. PT C/O OF IV BURNING WHEN THIS NURSE FLUSHED IV WITH SALINE FLUSH. CALLED COBY POWER, COBY STATED THAT SHE WILL COME AND CHECK IV.
--- NOTE | 2017-07-13 17:23 | NUR ---
TUMS GIVEN PER PT REQUEST. PT DENIES ANY NEEDS AT THIS TIME. CALL LIGHT IN REACH, NAD NOTED, WILL CONTINUE TO MONITOR.
--- NOTE | 2017-07-13 17:41 | NUR ---
PROVIDED VERBAL AND WRITTEN DISCHARGE TEACHING TO PT, PT VERBALIZED UNDERSTANDING REGARDING TEACHING. D/C LT THUMB IV, TIP INTACT. RESPIRATIORY TO COME SHOW PT HOW TO USE INHALOR. PT DENIES ANY NEEDS AT THIS TIME. CALL LIGHT IN REACH, NAD NOTED, WILL CONTINUE TO MONITOR.
--- NOTE | 2017-07-13 19:26 | NUR ---
PT IS SITTING UP IN BED VISITING WITH CHILDREN, PT STATED DID NOT GET A GOOD NIGHTS REST AND TODAY WAS NOT SO WELL EITHER, BELIEVES IV TO BE NON WORKING, TRIED TO FLUSH, NO BLOOD RETURN, INFOMED PT IF IV IS NOT [place] GOOD THEN PO MEDS WILL ADMIN TONIGHT. BED IN LOW PSOITION, CALL LIGHT IN REACH, CONTINUE WITH CARE PLAN
[2017-07-13 22:08] LABS: OVA + PARASITE EXAM Final report (())
--- NOTE | 2017-07-14 02:08 | NUR ---
CALL LIGHT IN REACH, WILL CONTINUE WITH PLAN OF CARE.
[2017-07-14 04:00] VITALS: BP 98/60
--- NOTE | 2017-07-14 04:19 | NUR ---
PT LYING IN BED WITH HOB AT 45, TELEVISION ON PT STATED DOZING IN AND OUT OF SLEEP, NO OTHER CONCERN AT THIS TIME PER PT. BED IN LOW POSITION, CALL LIGHT IN REACH
[2017-07-14 05:30] LABS: ALBUMIN 1.8 g/dL (3.4-5.0); BILIRUBIN - TOTAL 4.59 mg/dL (0.2-1.3); CALCIUM 8.2 mg/dL (8.5-10.1); CARBON DIOXIDE 22.6 mmol/L (21.0-32.0); CREATININE - SERUM 1.7 mg/dL (0.6-1.3); PROTEIN - SERUM 5.2 g/dL (6.4-8.2)
[2017-07-14 05:33] LABS: BASOPHILS 0.1 % (0-2); EOSINOPHILS 0.3 % (0-7); HEMATOCRIT 32.1 % (42.0-54.0); IMMATURE GRANULOCYTES 0.5 % (0-5); LYMPHOCYTES 6.2 % (15-50); MCH 34.6 pg (26.0-34.0); MCHC 34.3 g/dL (31.0-37.0); MCV 100.9 fL (80.0-100.0); MEAN PLATELET VOLUME 10.2 fL (7.4-10.4); MONOCYTES 5.3 % (2-11); NEUTROPHILS 87.6 % (40-80); PLATELET COUNT 387 10x3/uL (130-400); RBC 3.18 10x6/uL (4.20-6.10); RDW 15.6 % (11.5-14.5); WBC 40.5 10x3/uL (4.8-10.8)
[2017-07-14 05:38] LABS: ANION GAP 15.4 mmol/L (8-16)
--- NOTE | 2017-07-14 07:30 | NUR ---
REPORT RECIVED. PT COMPLAINING OF HIS IV HURTING. IV FLUSHES EASILY, NO SWELLING OR REDNESS NOTED. RR EVEN AND UNLABORED. WILL CTM.
[2017-07-14 08:00] VITALS: BP 126/65
--- NOTE | 2017-07-14 09:10 | HP ---
PATIENT: ALIS GOTTI JR MEDICAL RECORD: [id number] ACCOUNT: [id number] LOCATION:[address] : [birth year] ADMISSION DATE: 06/30/17 HISTORY AND PHYSICAL EXAMINATION HISTORY OF PRESENT ILLNESS: Mr. Gotti is a 46-year-old white male that presents to the Emergency Room complaining of abdominal pain and diarrhea for over a month. He has a history of presumed ulcerative colitis and was hospitalized and discharged here in late May for C. diff. He never picked up his meds and never followed up with GI. He has been feeling poorly. His mother came to visit and noted he was jaundiced and brings him here to the Emergency Room. He is hypotensive, slightly tachycardic. His bilirubin is 13. His creatinine is over 3 with a recent baseline of 0.8. Clinically, he is dry. He wants to be admitted to the ICU and will get GI and renal consultations. PAST MEDICAL HISTORY: Significant for known asthma and hypertension, ulcerative colitis and recent Clostridium difficile. He also has a history of heavy alcohol consumption, drinking half gallon of vodka every 2-3 days, but states he has not drank since he was in the hospital a little over a month ago. PAST SURGICAL HISTORY: Includes a gallbladder, knee surgery and appendectomy. ALLERGIES: CODEINE. HOME MEDICATIONS: Include lisinopril 20 mg a day, omeprazole 20 mg a day, paroxetine 20 mg a day. FAMILY HISTORY: Significant for cardiovascular disease and colon cancer. SOCIAL HISTORY: The patient has never smoked. He does have a history of heavy alcohol use, but has not drunk in over a month. He lives in a [place]. REVIEW OF SYSTEMS: He denies any weight loss. Does complain of some increasing abdominal girth and swelling in his lower extremities. No chest pain, no shortness of breath, abdominal pain, diarrhea with blood. He states that his rectal area is very excoriated. Denies any dysuria. PHYSICAL EXAMINATION: GENERAL: He is jaundiced. HEENT: His conjunctiva and mucous membranes are icteric. NECK: Soft and supple. HEART: Regular with mild tachycardia. LUNGS: Fairly clear. ABDOMEN: Distended with diminished bowel sounds. LOWER EXTREMITIES: No edema. NEUROLOGIC: Without any gross focal deficits. IMPRESSION: 1. Jaundice. 2. Possible hepatorenal syndrome. 3. Ulcerative colitis. 4. Probable Clostridium difficile reoccurrence. 5. Hypertension. 6. Leukocytosis, 33,000. 7. Recent lumbar transverse process fractures. HISTORY AND PHYSICAL [id number] ALIS GOTTI 8. Anemia. PLAN: Admit to ICU. IV fluids, pressors as needed, Flagyl and p.o. vancomycin. GI and nephrology consults. See orders for plan. TRANSINT:[id number] Voice Confirmation ID: [id number] DOCUMENT ID: [id number] KELLY ADAM DO at 0910 CC: [id number] DICTATION DATE: 07/01/17 1605 BOATING SAFETY OFFICER: 07/01/17 1652 ADM IN [facility] [address] [place] [address]
--- NOTE | 2017-07-14 10:00 | NUR ---
PT COMPLAINING OF PAIN AT IV SITE. IV FLUSHED EASILY. WILL CTM.
[2017-07-14 12:00] VITALS: BP 135/74
--- NOTE | 2017-07-14 13:50 | NUR ---
Nutrition Follow Up: Pt stated that his stomach was upset; he requested Sebastian Guzmán. Informed nursing. Pt said that his appetite is okay. He stated that he was not diabetic and asked that his diet be changed if possible. RD looked at glucose levels and will change pt to renal diet. Pt is eating 59% meal avg on a renal ADA diet. Wt loss noted - likely r/t fluid loss. +BM 07/12/17. Labs reviewed. Meds noted including Lasix. Will change diet to renal, continue Na restriction. RD following.
--- NOTE | 2017-07-14 14:00 | NUR ---
PT WORRIED ABOUT BOTTOM OF HIS FEET BEING RED/DARKENED PTS PULSES ARE PALP BUT WEAK R/T SO MUCH SWELLING AND PT C/O ANYTIME WE TRY TO ASSESS THEM. DOPPLER PERFORMED AND PULSES RRR NO ACTION REQUIRED. ENCOURAGED PT TO KEEP FEET ELEVATED. NO FURTHER NEEDS AT THIS TIME.
[2017-07-14 16:00] VITALS: BP 98/74
--- NOTE | 2017-07-14 16:53 | NUR ---
Patient Name: BRYCE GOTTI Encounter No: [id number] : 1970 Primary Insurance: [employer] Anticipated DC Date: 07-15-2017 Planned Disposition: Home DCP follow-up note: CM MET WITH PT IN ROOM TO DISCUSS DISCHARGE NEEDS AND PLANNING. CM DISCUSSED AVAILABILITY OF HOME HEALTH, REHAB SERVICES AND MEDICAL EQUIPMENT. PT REPORTS PLAN TO RETURN HOME, REPORTS HIS SON AND IS FIANCE' HAVE MOVED INTO PT'S HOME TO HELP HIM AFTER DISCHARGE HOME. PT REPORTS HE DOES NOT KNOW WHEN HE MIGHT BE LEAVING THE HOSPITAL, REPORTS THERE ARE TESTS THAT ARE PENDING RESULTS AND HE NEEDS TO KNOW WHAT IS WRONG WITH HIM BEFORE HE GOES ANYWHERE. PT REPORTS HIS MOTHER WANTS HIM TO GO [facility] BUT HE HAS DISCUSSED THIS WITH THE DOCTOR LAST NIGHT WHO DID NOT THINK [facility] TRANSFER IS AN OPTION. PT IS UNSURE OF DISCHARGE NEEDS WHEN HE GOES HOME. CM PROVIDED CHOICE LISTING FOR HOME HEALTH, DISCUSSED HOME HEALTH SERVICES. PT'S FAMILY TO TRANSPORT HOME AT DISCHARGE. PT CONTINUES TO REPORT PLAN TO DISCHARGE HOME WITH FAMILY ASSISTANCE. CM TO FOLLOW AND ASSIST NEEDED. Bryce Menendez, CASE MANAGEMENT
--- NOTE | 2017-07-14 17:55 | NUR ---
PT RESTING QUIETLY, RR EVEN AND UNLAOBRED. COLLECTED I&O'S FOR THE DAY. EARILER IN THE SHIFT, I EXPLAINED THE NEED FOR PT TO COLLECT URINE EVERY TIME IN THE URINAL, I EVEN PROVIDED PT WITH A SECOND URINAL AT BEDSIDE AND ONE IN THE BATHROOM. PT STILL DID NOT USE IT EVERY TIME, HE VOIDED X4 WITHOUT MEASURING. EXPLAINED THE IMPORTANCE OF MEASURING EVERY TIME, PT SAID "WELL ITS DIFFICULT TO MEASURE WHEN THE LASIX HITS ME." WILL GIVE REPORT ON PT CONDTION FOR THE DAY.
[2017-07-14 19:00] VITALS: BP 85/65
--- NOTE | 2017-07-15 01:11 | NUR ---
PT IN BED RESTING AT THIS TIME. EVEN AND UNLABORED RESPIRATIONS NOTED.
--- NOTE | 2017-07-15 03:41 | NUR ---
CALL LIGHT IN REACH, WILL CONTINUE WITH PLAN OF CARE.
[2017-07-15 04:00] VITALS: BP 113/67
[2017-07-15 07:32] LABS: ANION GAP 14.5 mmol/L (8-16); BILIRUBIN - TOTAL 4.7 mg/dL (0.2-1.3); CALCIUM 8.2 mg/dL (8.5-10.1); CARBON DIOXIDE 23.3 mmol/L (21.0-32.0); CREATININE - SERUM 1.7 mg/dL (0.6-1.3); POTASSIUM - SERUM 4.8 mmol/L (3.5-5.1); PROTEIN - SERUM 5.3 g/dL (6.4-8.2)
--- NOTE | 2017-07-15 07:32 | NUR ---
REICEVED REPORT ON PATIENT, PATIENT IS ALERT AND ORIENTED AT THIS TIME, SITTING ON SIDE OF BED. PATIENT HAS A RIGHT UPPER ARM IV THAT IS SL AT THIS TIME. PATIENT IS CONCERNED REGARDING HIS FLUID RESTRICTION. PATIENT HAS A CUP AT SIDE OF BED THAT HOLDS 1000CC OF FLUID. FLUID RESTRICTION STARTS OVER AT 0000, INFORMED PATIENT THAT HE HAS HAD 1/2 OF THE CUP SO 500CC. SO HE HAS 1 CUP FULL LEFT UNTILL 0000. STATES UNDERSTANDING. PATIENT DENIES ANY OTHER NEEDS. CPOC
[2017-07-15 08:00] VITALS: BP 111/78
--- NOTE | 2017-07-15 09:10 | NUR ---
MORNING MEDICATION GIVEN, ASSESSMENT DONE. PATIENT DENIES ANY NEEDS. CPOC
--- NOTE | 2017-07-15 10:45 | NUR ---
DR SLADE AT BEDSIDE, ASSESSING PATIENT. DR SLADE ORDERED TO START GIVING ALBUMIN Q 8H INSTEAD OF Q 12H. ALSO DISCUSSED WITH PATIENT REGARDING A MIDLINE OR PICC LINE AND STATED SHE WOULD LEAVE IT UP TO PCP. I WILL DISCUSS WITH ALFONSO PYLE. PATIENT DENIES ANY FURTHER NEEDS. CPOC
[2017-07-15 12:00] VITALS: BP 108/69
--- NOTE | 2017-07-15 12:00 | NUR ---
PATIENT SITTING ON SIDE OF BED EATING LUNCH, REQUESTING PAIN MEDICATION WHEN AVAILABLE TO HAVE, WILL GIVE. CPOC
--- NOTE | 2017-07-15 13:00 | NUR ---
PATIENT BLOOD PRESSURE IS STABLE AFTER LASIX AT 108/73. BURPRENEX 0.15 MG GIVEN FOR PAIN 04/18. WILL CONT TO MONITOR. CPOC
[2017-07-15 16:00] VITALS: BP 106/84
--- NOTE | 2017-07-15 17:00 | NUR ---
SPOKE WITH RADHA SEQUEIRA, INFORMED HER PATIENT PAIN IS NOT BEING CONTROLLED AND ASKED IF WE COULD INCREASE TO EVERY 4 HOUR PRN FOR THE BUPRENEX 0.15 AND SHE STATED YES OKAY TO DO. ORDER PUT IN. CPOC
--- NOTE | 2017-07-15 17:48 | NUR ---
SPOKE WITH CT, STATED THAT THE RADIOLOGIST WOULD NOT DO THE CT SCAN DUE TO THE CREATININE BEING ELEVATED AT 1.7, AND THAT WE NEEDED TO HYDRATE PATIENT, SPOKE WITH DEBORAH PYLE AND SHE STATED THAT THE CT SCAN WAS APPROVED BY MEGHAN, RADHA SEQUEIRA AND THAT PATIENT IS HAS FLUID OVERLOAD AND DOES NOT NEED A BOLUS OF EXTRA FLUIDS. 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 CPOC
--- NOTE | 2017-07-15 18:11 | NUR ---
BURPRENEX 0.15MG GIVEN IV FOR PAIN 04/18. PATIENT DENIES ANY FURTHER NEEDS AT THIS TIME. CPOC
--- NOTE | 2017-07-15 19:42 | NUR ---
PT RESTING IN BED. NAME AND DATE PLACED ON BOARD. PT ASKS FOR PAIN MED WHEN IT IS DUE. PT HAS +4 PITTING EDEMA IN LEGS. PT STATES LEGS ARE HEAVY AND PAINFUL HARD TO MOVE. PT DENIES ANY NEEDS AT THIS TIME. NO S/S OF DISTRESSS. WILL CPOC
--- NOTE | 2017-07-15 23:00 | NUR ---
PT C/O PAIN IN RIGHT EYE FEELS LIKE PRESSURE AND STABBING THAT RADIATES TO BEHIND EAR. PT STATES THIS IS A NEW ONSET THAT HAS BEEN INCREASING IN PAIN OVER THE LAST 2 DAYS. STATES IT IS A CONSTANT PAIN THAT HURTS WHILE MOVING EYE. PT STATES HE WILL VERBALIZE THIS WITH THE DOCTOR IN THE MORNING. I WROTE A NOTE TO HELP HIM REMEMBER. I WILL PASS IN REPORT. PT RECEIVING PAIN MEDS FOR 7/10 PAIN. PT DENIES ANY OTHER NEEDS. WILL CPOC
--- NOTE | 2017-07-16 01:00 | NUR ---
PT RESTING IN BED. WHEN PT WOKE UP HE HAD A CONFUSED LOOK ON HIS FACE. PT ONLY COULD ANSWER NAME AND . WHEN PT ANSWERED PLACE HE SAID HIS THAN ANSWERED UAMS. PT ALSO COULD NOT TELL ME YEAR OR PRESIDENT OR MONTH. WHEN PT ANSWERED MONTH HE LOOKED AWAY LOOKED DOWN HAD A CONFUSED LOOK AND SAID MONKEY. PT SAYS HE CAN FEEL HE IS DISORIENTED. WILL CONTINUE TO MONITOR LOC
--- NOTE | 2017-07-16 01:02 | NUR ---
PT STATES HE FEEL MORE ORIENTED THAN HE DID WHEN HE FIRST WOKE. PT NOW IS AAO X4. BUT SAYS HE FEELS THAT HE CANT THANK OF THE CORRECT ANSWERS. STAYING AT PT BEDSIDE GIVING MEDS. WILL CONTINUE TO MONITOR LOC
--- NOTE | 2017-07-16 01:18 | NUR ---
PT STATES HE FEELS ALOT BETTER. STILL FEELS HAZED, CONFUSED AT TIMES. PT STATES HE WILL CALL FOR HELP UP SINCE HE IS FEELING AN ALTERED THOUGHT PROCESS. PT DENIES ANY NEEDS. HE IS AAO X4. WILL CPOC
[2017-07-16 02:03] VITALS: BP 108/67
[2017-07-16 06:06] VITALS: BP 105/63
--- NOTE | 2017-07-16 06:14 | NUR ---
PT IS AAO X4. STATES DOESNT FEEL CONFUSED ANY MORE. GOT BLANKETS FOLDED AND STACKED TO ELEVATE LEGS. PT WATCHING TV DENIES ANY NEEDS. NO S/S OF DISTRESS. WILL CPOC
[2017-07-16 07:47] LABS: BASOPHILS 0.1 % (0-2); EOSINOPHILS 0.7 % (0-7); HEMATOCRIT 31.7 % (42.0-54.0); HEMOGLOBIN 10.9 g/dL (13.5-17.5); IMMATURE GRANULOCYTES 0.4 % (0-5); LYMPHOCYTES 6.4 % (15-50); MCHC 34.4 g/dL (31.0-37.0); MCV 101.9 fL (80.0-100.0); MEAN PLATELET VOLUME 9.6 fL (7.4-10.4); MONOCYTES 5.7 % (2-11); NEUTROPHILS 86.7 % (40-80); PLATELET COUNT 338 10x3/uL (130-400); RBC 3.11 10x6/uL (4.20-6.10); RDW 15.7 % (11.5-14.5); WBC 33.5 10x3/uL (4.8-10.8)
[2017-07-16 08:00] LABS: ALBUMIN 2.2 g/dL (3.4-5.0); ANION GAP 14.4 mmol/L (8-16); BILIRUBIN - TOTAL 4.34 mg/dL (0.2-1.3); CREATININE - SERUM 1.7 mg/dL (0.6-1.3); PROTEIN - SERUM 5.8 g/dL (6.4-8.2)
[2017-07-16 08:01] LABS: POTASSIUM - SERUM 3.4 mmol/L (3.5-5.1)
[2017-07-16 08:19] VITALS: BP 122/72
--- NOTE | 2017-07-16 09:32 | NUR ---
AM ROUNDS - PT SITTING ON THE SIDE OF THE BED AT THIS TIME. BED AT LOWEST POSITION. CALL DE LEÓN IN USE/REACH. SIDE RAILS UP X2. PT C/O PAIN TO BLE. PT WISHED TO LAY BACK IN THE BED, NEEDED HELP PLACING HIS LEGS BACK IN THE BED AND ELEVATED. PAIN MEDS GIVEN. WILL CONTINUE TO MONITOR
[2017-07-16 11:46] VITALS: BP 114/67
[2017-07-16 16:01] VITALS: BP 111/66
[2017-07-16 20:00] VITALS: BP 114/60
[2017-07-17] VITALS: BP 107/59
[2017-07-17 04:00] VITALS: BP 102/67
[2017-07-17 07:00] LABS: BASOPHILS 0.1 % (0-2); EOSINOPHILS 0.8 % (0-7); HEMOGLOBIN 10.7 g/dL (13.5-17.5); IMMATURE GRANULOCYTES 0.5 % (0-5); LYMPHOCYTES 6.8 % (15-50); MCH 35.2 pg (26.0-34.0); MCHC 34.5 g/dL (31.0-37.0); MEAN PLATELET VOLUME 9.9 fL (7.4-10.4); MONOCYTES 5.3 % (2-11); NEUTROPHILS 86.5 % (40-80); PLATELET COUNT 338 10x3/uL (130-400); RBC 3.04 10x6/uL (4.20-6.10); RDW 15.8 % (11.5-14.5); WBC 33.3 10x3/uL (4.8-10.8)
[2017-07-17 07:11] LABS: ALBUMIN 2.4 g/dL (3.4-5.0); ANION GAP 15.3 mmol/L (8-16); BILIRUBIN - TOTAL 4.09 mg/dL (0.2-1.3); CALCIUM 7.8 mg/dL (8.5-10.1); CARBON DIOXIDE 25.3 mmol/L (21.0-32.0); CREATININE - SERUM 1.5 mg/dL (0.6-1.3); POTASSIUM - SERUM 3.6 mmol/L (3.5-5.1); PROTEIN - SERUM 5.6 g/dL (6.4-8.2)
--- NOTE | 2017-07-17 07:31 | NUR ---
AM ROUNDS - PT IS AWAKE AND IN THE BATHROOM AT THIS TIME. BED AT LOWEST POSITION. CALL DE LEÓN IN USE/REACH. SIDE RAILS UP X2. FLUID RESTRICTION OF 1500CC/DAY. 380 CC ON PLASTER AND STUCCO WORKER. BED AT LOWEST POSITION. CALL DE LEÓN IN USE/REACH. SIDE RAILS UP X2. NO NEEDS AT THIS TIME. WILL CONTINUE TO MONITOR
[2017-07-17 07:58] VITALS: BP 106/71
[2017-07-17 10:08] LABS: MITOCHONDRIAL ANTIBODY 18.4 Units (0.0-20.0)
[2017-07-17 11:14] VITALS: BP 112/75
--- NOTE | 2017-07-17 15:04 | NUR ---
PT IN BED AND APPEARS TO BE SLEEPING AT THIS TIME WITH EQUALA ND NON LABORED BREATHING. BED AT LOWEST POSITION. CALL DE LEÓN IN USE/REACH. SIDE RAILS UP X2. WILL CONTINUE TO MONITOR
[2017-07-17 16:18] VITALS: BP 107/58
--- NOTE | 2017-07-17 19:30 | NUR ---
RECIEVED SHIFT REPORT. PT IS LYING IN BED. ALERT AND ORIENTED AND ABLE TO VERBALIZE NEEDS. IV IS PATENT AND SALINE LOC AT THIS TIME. PT IS AMBULATORY BUT WAS INSTRUCTED TO CALL FOR ANY ASSISTANCE NEEDED. PT STATES PAIN IS 5/10. NO NEEDS ARE VERBALIZED AT THIS TIME. WILL CONTINUE TO MONITOR. SIDE RAILS ARE UP X 2. BED IS IN LOWEST POSITION. CALL LIGHT IS WITHIN REACH.
[2017-07-17 20:00] VITALS: BP 108/66
--- NOTE | 2017-07-17 20:10 | NUR ---
SHIFT ASSESSMENT COMPLETED. NIGHT MEDS GIVEN WITH NO PROBLEMS. NO NEEDS ARE VOICED. WILL MONITOR. SIDE RAILS X 2. BED LOW. CALL LIGHT IN REACH.
[2017-07-18] VITALS: BP 112/70
[2017-07-18 04:00] VITALS: BP 113/73
[2017-07-18 05:23] LABS: BASOPHILS 0.2 % (0-2); HEMATOCRIT 29.1 % (42.0-54.0); HEMOGLOBIN 10.1 g/dL (13.5-17.5); IMMATURE GRANULOCYTES 1.1 % (0-5); LYMPHOCYTES 6.2 % (15-50); MCH 34.6 pg (26.0-34.0); MCHC 34.7 g/dL (31.0-37.0); MCV 99.7 fL (80.0-100.0); MEAN PLATELET VOLUME 10.5 fL (7.4-10.4); MONOCYTES 5.2 % (2-11); NEUTROPHILS 86.3 % (40-80); PLATELET COUNT 222 10x3/uL (130-400); RBC 2.92 10x6/uL (4.20-6.10); RDW 15.7 % (11.5-14.5); WBC 32.9 10x3/uL (4.8-10.8)
[2017-07-18 05:50] LABS: ALBUMIN 2.3 g/dL (3.4-5.0); ANION GAP 17.2 mmol/L (8-16); BILIRUBIN - TOTAL 3.5 mg/dL (0.2-1.3); CARBON DIOXIDE 24.5 mmol/L (21.0-32.0); CREATININE - SERUM 1.4 mg/dL (0.6-1.3); POTASSIUM - SERUM 3.7 mmol/L (3.5-5.1); PROTEIN - SERUM 5.7 g/dL (6.4-8.2)
--- NOTE | 2017-07-18 07:02 | NUR ---
AM ROUNDS- PT IN BED, WATCHING TV, RESP EVEN AND UNLABORED. LT MIDLINE SL. PT JUST FINISHED WITH SHOWER. DENIES ANY NEEDS AT THIS TIME. BED LOW AND WHEELS LOCKED, BEDSIDE RAILS X2, CALL LIGHT IN REACH, NAD NOTED, WILL CONTINUE TO MONITOR.
--- NOTE | 2017-07-18 07:57 | NUR ---
ADMINISTERED 0.15MG OF BUPRENEX FOR PAIN LEVEL OF 7/10. PT IN BED, DENIES ANY OTHER NEEDS AT THIS TIME. CALL LIGHT IN REACH, NAD NOTED, WILL CONTINUE TO MONITOR.
[2017-07-18 08:00] VITALS: BP 107/71
[2017-07-18 09:02] LABS: INR 1.75 (0.85-1.17); PROTIME 20.4 SECONDS (11.6-15.0)
--- NOTE | 2017-07-18 09:38 | NUR ---
RECEIVED CALL FROM [facility], WHO INFORMED ME THAT THEY WERE NOT GOING TO BE ABLE TO DO LIVER BIOPSY TODAY DUE TO INR BEING 1.75, THEY NEED THE INR TO BE BELOW 1.5, STATED TO NOTIFY DR. TEJADA AND TO TELL HIM THAT IF THEY CAN GET HIS INR BELOW 1.5, THEY CAN PROBABLY DO THE LIVER BIOPSY TUESDAY. WILL NOTIFY DR. TEJADA.
--- NOTE | 2017-07-18 09:51 | NUR ---
CALLED DR. TEJADA OFFICE AND SPOKE WITH HIS NURSE TONEY. LEFT A MESSAGE WITH HER TO LET DR. TEJADA KNOW THAT [facility] WILL NOT BE ABLE TO DO LIVER BIOPSY TODAY BECAUSE PT'S INR IS 1.75 AND THEY WANT IT TO BE BELOW 1.5. ALSO IF INR IS COMES DOWN THEY CAN PROBABLY DO THE LIVER BIOPSY ON TUESDAY.
[2017-07-18 12:00] VITALS: BP 116/67
--- NOTE | 2017-07-18 13:09 | NUR ---
ADMINISTERED 0.15MG OF BUPRENEX FOR PAIN LEVEL OF 7/10. PT DENIES ANY OTHER NEEDS AT THIS TIME. FAMILY AT BEDSIDE, CALL LIGHT IN REACH, NAD NOTED, WILL CONTINUE TO MONITOR.
--- NOTE | 2017-07-18 13:51 | NUR ---
Nutrition Follow Up: Pt is eating 57% meal avg on a renal diet. Wt loss noted - likely related to fluid loss. +BM 07/17/17. Meds noted including Lasix. Labs reviewed. Rec continue current diet. RD following.
--- NOTE | 2017-07-18 15:54 | NUR ---
MEDS GIVEN ORDERED, PT IN BED, WATCHING TV, DENIES ANY NEEDS AT THIS TIME. CALL LIGHT IN REACH, NAD NOTED, WILL CONTINUE TO MONITOR.
[2017-07-18 16:00] VITALS: BP 97/64
--- NOTE | 2017-07-18 18:05 | NUR ---
CALLED PHARMACY AND SPOKE WITH [facility], INFORMED HER THAT I NEED VIT K FOR PT. [facility] STATE THAT SHE WOULD MAKE AND BRING IT UP SHORTLY.
--- NOTE | 2017-07-18 18:22 | NUR ---
ADMINISTERED 0.15MG OF BUPRENEX FOR PAIN LEVEL OF 7/10, ALSO HUNG ALBUMIN TO INFUSE BY GRAVITY. PT DENIES ANY OTHER NEEDS AT THIS TIME. CALL LIGHT IN REACH, NAD NOTED, WILL CONTINUE TO MONITOR.
[2017-07-18 19:00] VITALS: BP 112/69
--- NOTE | 2017-07-18 19:42 | NUR ---
ALERT/AWAKE TALKING ON PHONE. IV IN L UA INTACT. FLUSHED EASILY WITH 10CC. REQUESTED SOME ICE WATER. 1500 FLUID RESTRICTION NOTED. 4+ PITTING EDEMA OF BILATERAL FEET ASSESSED. DENIES ANY NEEDS. HAS CALL LIGHT AND BEDSIDE TABLE WITH PERSONAL ITEMS IN REACH.
--- NOTE | 2017-07-18 21:10 | NUR ---
ADMIN SCHED MEDS. REQUESTED A POPSICLE.
[2017-07-19] VITALS: BP 100/68
--- NOTE | 2017-07-19 00:30 | NUR ---
AMBULATED TO BATHROOM. REQUESTED ASSISTANCE WITH LIFTING LEGS BACK INTO BED.
--- NOTE | 2017-07-19 03:15 | NUR ---
ADMIN BUPRENIX 0.15 MG IV PER REQUEST FOR C/O BILATERAL FEET/LEG PAIN LEVEL 8 ON NUMBER SCALE. DESCRIBED ACHING, BURNING PAIN.
[2017-07-19 04:10] VITALS: BP 104/66
[2017-07-19 04:49] LABS: HEMATOCRIT 30.1 % (42.0-54.0); HEMOGLOBIN 10.3 g/dL (13.5-17.5); MCH 34.7 pg (26.0-34.0); MCHC 34.2 g/dL (31.0-37.0); MCV 101.3 fL (80.0-100.0); MEAN PLATELET VOLUME 9.7 fL (7.4-10.4); PLATELET COUNT 302 10x3/uL (130-400); RBC 2.97 10x6/uL (4.20-6.10); RDW 15.6 % (11.5-14.5); WBC 25.8 10x3/uL (4.8-10.8)
[2017-07-19 05:17] LABS: ALBUMIN 2.3 g/dL (3.4-5.0); ANION GAP 13.3 mmol/L (8-16); BILIRUBIN - TOTAL 3.28 mg/dL (0.2-1.3); CALCIUM 7.6 mg/dL (8.5-10.1); CARBON DIOXIDE 27.9 mmol/L (21.0-32.0); CREATININE - SERUM 1.5 mg/dL (0.6-1.3); POTASSIUM - SERUM 3.2 mmol/L (3.5-5.1); PROTEIN - SERUM 5.9 g/dL (6.4-8.2)
[2017-07-19 05:46] LABS: EOSINOPHILS 1 % (0-7); LYMPHOCYTES 7 % (15-50); MONOCYTES 1 % (2-11); NEUTROPHILS 89 % (40-80); TARGET CELLS 1+
[2017-07-19 05:47] LABS: PLATELET ESTIMATE NORMAL
--- NOTE | 2017-07-19 07:40 | NUR ---
ASSESSMENT COMPLETED. LEFT UPPER MIDLINE PATENT, PITTING LEONA 4PLUS TO BOTH FEET AND BOTH LEGS. PT IS UP AB SAGRARIO. INSTRUCTED ON FLUID RECTRICTIONS. REFUSES SCD. WILL MONITOR. SR UP WITH CALL LIGHT IN REACH
[2017-07-19 07:57] VITALS: BP 108/66
--- NOTE | 2017-07-19 08:36 | NUR ---
RESTS IN BED WITH CALL LIGHT IN REACH. NO NEEDS VOICED AT THIS TIME. WILL MONITOR.
[2017-07-19 11:22] VITALS: BP 103/62
[2017-07-19 15:55] VITALS: BP 106/70
--- NOTE | 2017-07-19 17:32 | NUR ---
HOB UP FOR DIET. DENIES ANY NEEDS. FEET AND LEGS SWELLEN. SR UP WITH CALL LIGHT IN REACH. WILL MONITOR
[2017-07-19 19:00] VITALS: BP 107/66
--- NOTE | 2017-07-19 19:47 | NUR ---
PT IN BED RESTING QUEITLY. BREATHING EVEN AND UNLABORED. DENIES ANY PAIN OR NEEDS AT THIS TIME. BED RAILS UP X2. BED IN LOW POSITION, CALL LIGHT WITHIN REACH.
--- NOTE | 2017-07-19 21:45 | NUR ---
CONSENTS FOR COMPUTERIZED TOMOGRAPHY GUIDED LIVER BIOPSY AND ANESTHESIA SIGNED BY PT WITNESSED X2. WILL PUT IN CHART. BED IN LOW POSITION, CALL LIGHT WITHIN REACH.
--- NOTE | 2017-07-19 21:55 | NUR ---
PT STATED HE WAS HAVING PAIN IN HIS FEET AND LEGS RATED AT A 7/10. GAVE PT BUPRINEX 0.15MG PER ORDER. RESTING IN BED QUEITLY. BED IN LOW POSITION, CALL LIGHT WITHIN REACH.
[2017-07-20] VITALS (11 sets, daily range): BP systolic 108–129; BP diastolic 61–90
[2017-07-20 06:28] LABS: HEMATOCRIT 30.6 % (42.0-54.0); HEMOGLOBIN 10.5 g/dL (13.5-17.5); MCH 34.7 pg (26.0-34.0); MCHC 34.3 g/dL (31.0-37.0); MEAN PLATELET VOLUME 9.6 fL (7.4-10.4); PLATELET COUNT 280 10x3/uL (130-400); RBC 3.03 10x6/uL (4.20-6.10); RDW 15.6 % (11.5-14.5); WBC 27.1 10x3/uL (4.8-10.8)
--- NOTE | 2017-07-20 06:43 | NUR ---
PT IN BED RESTING QUIETLY. STATED HE HAD PAIN IN HIS FEET AND LEGS AND REQUESTED HIS PRN PAIN MEDICATION. 0.15 OF BUPRENEX GIVEN PER ORDER. DENIES ANY OTHER NEEDS AT THIS TIME. BED IN LOW POSITION, CALL LIGHT WITHIN REACH.
[2017-07-20 06:54] LABS: INR 1.77 (0.85-1.17); PROTIME 20.6 SECONDS (11.6-15.0)
[2017-07-20 06:58] LABS: ALBUMIN 2.3 g/dL (3.4-5.0); ANION GAP 14.8 mmol/L (8-16); BILIRUBIN - TOTAL 3.01 mg/dL (0.2-1.3); CALCIUM 7.7 mg/dL (8.5-10.1); CARBON DIOXIDE 26.2 mmol/L (21.0-32.0); CREATININE - SERUM 1.5 mg/dL (0.6-1.3); PROTEIN - SERUM 5.9 g/dL (6.4-8.2)
[2017-07-20 07:17] LABS: LYMPHOCYTES 10 % (15-50); NEUTROPHILS 84 % (40-80); PLATELET ESTIMATE NORMAL; TARGET CELLS 1+
[2017-07-20 07:18] LABS: POIKILOCYTOSIS OCC
--- NOTE | 2017-07-20 08:20 | NUR ---
ASSESSMENT PER FLOW SHEET.PT WITHOUT DISTRESS.DENIES NEEDS AT PRESENT.NPO FOR POSS PROCEDURE TODAY.
--- NOTE | 2017-07-20 12:55 | NUR ---
STILL NPO FOR POSS PROCEDURE.SLEEPING AT PRESENT.MONITOR FOR NEEDS
--- NOTE | 2017-07-20 14:26 | NUR ---
TO IR VIA BED FOR CT GUIDED BIOPSY OF LIVER
--- NOTE | 2017-07-20 18:49 | NUR ---
REMAINS WITHOUT NEEDS,WITHOUT DISTRESS. VSS. WITHOUT CHANGE FROM INITIAL SHIFT ASSESSMENT.CONT PLAN OF CARE
--- NOTE | 2017-07-20 19:45 | NUR ---
PT IN BED RESTING QUEITLY. REQUESTED PAIN MEDICATION. TOLD PT THAT IT IS NOT YET TIME FOR HIM TO HAVE IT AGAIN AND THAT I WILL BRING IT SOON HE CAN HAVE IT. VERBALIZED UNDERSTANDING. BREATHING EVEN AND UNLABORED. DENIES ANY OTHER NEEDS AT THIS TIME. BED IN LOW POSITION, CALL LIGHT WITHIN REACH.
[2017-07-21 00:05] VITALS: BP 120/76
--- NOTE | 2017-07-21 01:08 | NUR ---
PT C/O PAIN IN FEET AND LEGS. REQUESTED HIS PRN PAIN MEDICATION. ADMINISTERED BUPRENEX 0.15 PER ORDER. DENIES ANY OTHER NEEDS. NOW RESTING IN BED QUEITLY. BED RAILS UP X2. BED IN LOW POSITION, CALL LIGHT WITHIN REACH.
--- NOTE | 2017-07-21 03:04 | NUR ---
ALBUMIN HUNG AND COMPLETED PER ORDER. PT IN BED RESTING QUEITLY. DENIES ANY PAIN OR NEEDS AT THIS TIME. BED RAILS UP X2. BED IN LOW POSITION, CALL LIGHT WITHIN REACH.
[2017-07-21 05:21] VITALS: BP 112/65
--- NOTE | 2017-07-21 05:35 | NUR ---
PT REQUESTED PRN PAIN MEDICATION. 0.15 BUPRENEX GIVEN PER ORDER. DENIES ANY OTHER NEEDS AT THIS TIME. BED IN LOW POSITION, CALL LIGHT WITHIN REACH.
[2017-07-21 05:43] LABS: ALBUMIN 2.7 g/dL (3.4-5.0); ANION GAP 14.1 mmol/L (8-16); BILIRUBIN - TOTAL 3.04 mg/dL (0.2-1.3); CARBON DIOXIDE 27.3 mmol/L (21.0-32.0); CREATININE - SERUM 1.4 mg/dL (0.6-1.3); POTASSIUM - SERUM 3.4 mmol/L (3.5-5.1); PROTEIN - SERUM 5.8 g/dL (6.4-8.2)
[2017-07-21 07:45] VITALS: BP 111/71
--- NOTE | 2017-07-21 07:45 | NUR ---
AM ROUNDS COMPLETED. INTRODUCED MYSELF TO PT PRIMARY RN FOR TODAYS SHIFT. PT IS FAMILIAR WITH ME FROM OTHER DAYS HIS NURSE. PT STATES HE IS FEELING BETTER OVERALL BUT STILL VERY SWOLLEN AND PAIN IN HIS LEGS. LIVER BIOPSY DONE YESTERDAY AND SITE IS CLEAN AND DRY, NO S/S OF BLEEDING OR INFECTION NOTED. PT WILL CHECK CHART AND ORDERS AND CPOC. NO CURRENT NEEDS NOTED AT THIS TIME WILL CPOC.
--- NOTE | 2017-07-21 09:28 | NUR ---
PT LEAVING WITH Hel[facility].
--- NOTE | 2017-07-21 09:57 | NUR ---
MORNING MEDICATIONS GIVEN. PT C/O BILAT FEET AND LEG PAIN AND WAS PROVIDED WITH PRN PAIN MEDICATION VIA L.UPPER ARM MIDLINE. DRSG CDI WITH BIOPATCH IN PLACE AND DRSG ADHERED TO SKIN AND SWAB CAPS IN USE. INFUSING ALBUMIN NOW BY GRAVITY. PTS BILAT LE ARE VERY SWOLLEN AND PALE, PULSES ARENT PALP R/T PT NOT ALLOWING BC OF PAIN BUT DOPPLER PERFORMED AND GOOD FLOW NOTED. ENCOURAGED PT TO KEEP FEET ELEVATED WHEN IN BED. PT IS ON A FLUID RESTRICTION AND VERBALIZED UNDERSTANDING HOWEVER IN REPORT I WAS TOLD HE IS NONCOMPLIANT, WILL MONITER THIS. PT DENIES ANY FURTHER NEEDS AT THIS TIME. CL IN REACH, BED IN LOWEST, SIDE RAILS X2. WILL CPOC.
[2017-07-21 11:50] VITALS: BP 106/68
--- NOTE | 2017-07-21 12:47 | EC ---
PATIENT:ALIS GOTTI JR DATE OF SERVICE: 06/30/17 SEX: M MEDICAL RECORD: [id number] DATE OF : [birth year] LOCATION:D.M2 D.214 AGE OF PATIENT: 46 ADMISSION DATE: 06/30/17 REFERRING PHYSICIAN: INTERPRETING PHYSICIAN: SABINA LO MD ECHOCARDIOGRAM REPORT ECHO CHARGES 4 ECHO COMPLETE CLINICAL DIAGNOSIS: HEPATORENAL FAILURE ECHOCARDIOGRAPHIC MEASUREMENTS (adult normal given) AC root (d.<3.7cm) 3.9 cm LV Septum d (<1.2 cm> 1.2 cm Valve Excursion 2.1 cm LV Septum (systole) 1.6 cm Left Atria (s.<4.0cm> 4.1 cm LVPW d(<1.2cm) 1.3 cm RV (d.<2.3cm) 3.4 cm LVPW (sytole) 1.9 cm LV diastole(<5.6CM) 4.6 cm MV E-F(>70mm/sec) cm LV systole 2.0 cm LVOT Diameter 2.2 cm MV exc.(>10mm) cm Est.ejection fraction (50-75%) % Pericardial Effusion N DOPPLER: LVIT cm/sec A 106 cm/sec E 88.0 cm/sec LA cm/sec RVSP 24.0 mmHg LVOT 131 cm/sec AOP1/2T m/s Asc. Ao 169 cm/sec RVOT 92.0 cm/sec RA cm/sec PA 134 cm/sec AV Gradient Peak 11.4 mmHg AV Mean 5.3 mmHg AV Area 2.8 cm MV Gradient Peak 5.1 mmHg MV Mean 2.4 mmHg MV Area cm COMMENTS: Stock Digger: Jim MILLSOE Cs Associate: 4 Dr. Lo TAPE# PACS DATE OF SERVICE: 07/01/2017 PROCEDURE: Transthoracic echocardiogram. FINDINGS: 1. Left ventricle is shown to have mild concentric left ventricular hypertrophy with evidence of hyperdynamic left ventricular function, ejection fraction of 70%. 2. The diastolic function is shown to be abnormal. 3. The mitral valve is shown to be normal structure and normal function without ECHOCARDIOGRAM REPORT [id number] ALIS GOTTI any evidence of significant mitral regurgitation or mitral stenosis. 4. The left atrium is shown to be mildly enlarged at 4.1 cm. 5. The right atrium is shown to be mildly dilated. 6. The right ventricle is dilated with good function with right ventricular hypertrophy. 7. The tricuspid valve shows trace tricuspid regurgitation, normal right ventricular systolic pressures. 8. The pulmonic valve is normal. 9. Pericardium shows no evidence of pericardial effusion. 10. The IVC was not well elucidated. CONCLUSIONS: The patient has evidence of hyperdynamic left ventricular function, left ventricular hypertrophy, and evidence of hypertensive heart disease. TRANSINT:[id number] Voice Confirmation ID: [id number] DOCUMENT ID: [id number] 07/15/2017 Edited to correct date of service, dm. SABINA LO MD at 1247 CC: [id number] DICTATION DATE: 07/04/17 0857 STOCK DIGGER: 07/04/[address] [facility] [address] [place] [address]
--- NOTE | 2017-07-21 14:46 | NUR ---
PT CALLED REQUESTING PRN PAIN MEDICATION AND WAS PROVIDED WITH IT ALONG WITH HIS SCHEDULED ANBX ALONG WITH SHERBERT ICE CREAM A SNACK. PT HAS BEEN ENCOURAGED TO AMBULATE BECAUSE NEARING DISCHARGE AND HE IS "SCARED" TO GO HOME HE STATES R/T WEAKNESS. PT NOW STATES "I DONT WANT TO WALK IN THE HALLS, IM WALKING AND STRETCHING A LOT ON MY OWN IN MY ROOM BUT IM NOT READY TO GO HOME IN CASE I HAVE TO BE READMITTED" PT HAS VOICED TO ME THAT HE WOULD PREFER TO WAIT ON HIS BIOPSY RESULTS IN CASE MORE THINGS HAVE TO BE DONE AND HE WILL BE ABLE TO AVOID A WHOLE NEW ADMISSION AND WORK-UP. EXPLAINED TO PT THAT IF HE IS STABLE AND FEELING BETTER HE CANT JUST STAY IN THE HOSPITAL TO WAIT ON RESULTS PT VERABLIZED UNDERSTANDING BUT THEN STATES "WELL IM TOO WEAK I ALMOST FALL EVERYTIME I USE THE BR" THERAPY HAS ASSESSED PT AND HE IS TOO STRONG AND AMBULATORY WITHOUT ANY NOTED DEFICITS TO NEEDS DAILY PHYSICAL THERAPY, I PERSONALLY HAVE WITNESSED PT UP/DOWN TO BR AND HE EVEN HAS BEEN SHOWERING WITH NO ASSISTANCE SAFELY. WILL DISCUSS WITH PRIMARY AND JUST CONTINUE WITH PLAN OF CARE.
[2017-07-21 15:40] VITALS: BP 114/77
--- NOTE | 2017-07-21 15:55 | NUR ---
NUTRITION F/U CHART REVIEWED. PT S/P PROCEDURE. RENAL DIET RESUMED. ~65% INTAKE RECENT MEALS. NOTE POSSIBLE DC PLANNING. STABLE WT, +BM RECORDED 07/20. WILL CONTINUE TO PROVIDE DIET, MONITOR PO INTAKE. RD FOLLOWING
--- NOTE | 2017-07-21 16:21 | NUR ---
CALLED INQUIRING ABOUT PT FOR HIS R.EYE PAIN AND WANTS TO DISCUSS WITH PRIMARY. WILL RELAY MESSAGE.
--- NOTE | 2017-07-21 18:00 | NUR ---
PRIMARY AWARE OF CONSULT FOR EYE PAIN HOWEVER CONSULTED R/T PT C/O EYE PAIN. PT HAS NEVER C/O PAIN TO PRIMARY DOCTOR. AWARE AND STATES HE CAN F/U OUTPATIENT NO VISIBLE IMPAIRMENT AND PT IS STABLE TO D/C.
--- NOTE | 2017-07-21 19:40 | NUR ---
SOFTWARE TESTER AT BEDSIDE TO OBTAIN VITALS, CALL LIGHT IN REACH. WILL CONTINUE WITH PLAN OF CARE.
--- NOTE | 2017-07-21 19:47 | NUR ---
PT IN BED. PROVIDED PAIN MED PER REQUEST. DENIES FURTHER NEEDS AT THIS TIME.
[2017-07-21 20:00] VITALS: BP 112/69
[2017-07-22] VITALS: BP 113/67
[2017-07-22 04:00] VITALS: BP 112/64
[2017-07-22 06:02] LABS: ANION GAP 11.7 mmol/L (8-16); CALCIUM 8.1 mg/dL (8.5-10.1); CARBON DIOXIDE 27.7 mmol/L (21.0-32.0); CREATININE - SERUM 1.5 mg/dL (0.6-1.3); POTASSIUM - SERUM 3.4 mmol/L (3.5-5.1)
[2017-07-22 08:02] VITALS: BP 109/68
--- NOTE | 2017-07-22 08:06 | NUR ---
AM ROUNDS - PT IS AWAKE AND IN BED AT THIS TIME. LEFT UPPER ARM, MIDLINE. BED AT LOWEST POSITION. CALL DE LEÓN IN USE/REACH. SIDE RAILS UP X2. NO NEEDSA AT THIS TIME. [facility] MONITOR
--- NOTE | 2017-07-22 09:57 | NUR ---
Patient Name: BRYCE GOTTI Admission Status: ER Accout number: [id number] Admission Date: 06-30-2017 : 1970 Admission Diagnosis:ENTEROCOLITIS D/T CLOSTRIDIUM DIFFICILE, NOT SPCF RE Attending: KELLY ADAM Current LOS: 22 Anticipated DC Date: 07-22-2017 Planned Disposition: Home WITH HOME HEALTH Primary Insurance: [employer] O LATE ENTRY: Discharge Planning Comments: CM RECEIVED ORDER FOR DISCHARGE PLANNING, MET WITH PT ON 07-21-17 AT APPROXIMATELY 1615 HOURS IN ROOM TO DISCUSS DISCHARGE NEEDS AND PLANNING. CM EXPLAINED DISCHARGE PLANNING ORDER. CM DISCUSSED AVAILABILITY OF HOME HEALTH, REHAB SERVICES AND MEDICAL EQUIPMENT. PT REPORTS PLAN TO RETURN HOME, REPORTS HIS SON AND IS SABRINAANCE' HAVE MOVED INTO PT'S HOME AND CAN HELP HIM THERE. PT DOES NOT WANT PLACEMENT IN SWING BED, INPATIENT REHAB OR [facility] FACILITY. PT REPORTS HE DOES NOT THINK IT IS RIGHT FOR "THIS DOCTOR" TO TRY TO "KICK HIM OUT" BEFORE DR. TEJADA IS BACK NEXT WEEK. CM ASSURED PT THAT FOR DISCHARGE FROM THE HOSPITAL, ALL DOCTORS MUST BE IN AGREEMENT FOR DISCHARGE. PT REPORTS HE DOES NOT WANT TO BE DISCHARGED HOME WITHOUT ALL OF HIS RESULTS BEING IN FROM HIS BIOPSY AND HAVING TO BE READMITTED TO THE HOSPITAL AND START ALL OVER AGAIN. CM EXPLAINED THAT PT'S RECORD IS ELECTRONIC, THAT HE WOULD NOT HAVE TO START ALL OVER AGAIN WITH TESTING IF HE HAS TO BE READMITTED TO THE HOSPITAL. NATALIA FUTHER EXPLAINED THAT PT DOES NOT NEED TO BE IN THE HOSPITAL TO WAIT FOR BIOPSY RESULTS, HE COULD WAIT AT HOME IF THAT IS WHERE PT IS WANTING TO GO AT DISCHARGE. CM PROVIDED CHOICE LISTING FOR HOME HEALTH WELL [facility] FACILITIES AVAILABLE IN GIVEN AND SURROUNDING AREA. CM DISCUSSED HOME HEALTH SERVICES. PT'S FAMILY TO TRANSPORT HOME AT DISCHARGE. PT CONTINUES TO REPORT PLAN TO DISCHARGE HOME WITH FAMILY ASSISTANCE. CM HAS OFFERED HOME HEALTH, PT HAS NOT DECIDED IF HE WILL ACCEPT HOME HEALTH. CM TO FOLLOW AND ASSIST NEEDED. Bryce Menendez, CASE MANAGEMENT
--- NOTE | 2017-07-22 10:28 | NUR ---
Patient Name: BRYCE GOTTI Encounter No: [id number] : 1970 Primary Insurance: [employer] ADVANTAGE HMO Anticipated DC Date: 07-22-2017 Planned Disposition: Home WITH HOME HEALTH External Planned Provider: WAITING ON PT CHOICE / DOCTOR ORDERS DCP follow-up note: CM RECEIVED ORDER FOR WALKER. CM MET WITH PT IN ROOM TO DISCUSS ORDER AND DISCHARGE PLANNING. PT REPORTS HE IS NOT LEAVING UNTIL "DR TEJADA GETS BACK ON TUESDAY." CM EXPLAINED THAT HAVING A DISCHARGE PLAN IS ESSENTIAL AND THAT CM IS ONLY TRYING TO HELP PT FOR WHEN HE HAS TO LEAVE THE HOSPITAL. PT HAS NO PREFERENCE ON MEDICAL EQUIPMENT PROVIDER. CM ASKED ABOUT PT'S DISCHARGE PLAN, PT REPORTS HE WILL BE GOING HOME AND WANTS HOME HEALTH, HE HAS NOT YET DECIDED ON A HOME HEALTH COMPANY. CM CALLED [facility], , SPOKE TO PRIYA AND FAXED REFERRAL TO [facility] AT [phone] WITH REQUEST FOR HOSPITAL DELIVERY OF WALKER. PT CONTINUES TO REPORT PLAN TO DISCHARGE HOME WITH FAMILY ASSISTANCE. CM HAS OFFERED HOME HEALTH, CM WAITING ON PT'S CHOICE OF HOME HEALTH PROVIDER. CM TO ARRANGE HOME HEALTH WITH PT CHOICE AND PHYSICIAN AGREEMENT / ORDERS. CM TO FOLLOW AND ASSIST NEEDED. Bryce Menendez, CASE MANAGEMENT
[2017-07-22 10:44] LABS: ANION GAP 13.4 mmol/L (8-16); CALCIUM 8.5 mg/dL (8.5-10.1); CARBON DIOXIDE 27.2 mmol/L (21.0-32.0); CREATININE - SERUM 1.5 mg/dL (0.6-1.3); POTASSIUM - SERUM 3.6 mmol/L (3.5-5.1)
[2017-07-22 12:00] VITALS: BP 106/66
--- NOTE | 2017-07-22 14:34 | NUR ---
PT IN BED AT THIS TIME AND APPEARS TO BE SLEEPING WITH EQUAL AND NON LABORED BREATHING. WILL CONTINUE TO MONITOR
[2017-07-22] MEDS ORDERED: AZULFIDINE500 MG PO (15:03)
[2017-07-22] MEDS ORDERED: ALDACTONE25 MG PO (15:08)
[2017-07-22] MEDS ORDERED: PEPCID20 MG PO (15:09)
[2017-07-22] MEDS ORDERED: PREDNISONE10 MG PO (15:11)
[2017-07-22] MEDS ORDERED: BUMEX2 MG PO (15:13)
[2017-07-22 16:00] VITALS: BP 102/64
[2017-07-22] MEDS ORDERED: ULTRAM50 MG PO (16:18)
--- NOTE | 2017-07-22 16:44 | NUR ---
Patient Name: BRYCE GOTTI Admission Status: ER Accout number: [id number] Admission Date: 06-30-2017 : 1970 Admission Diagnosis:ENTEROCOLITIS D/T CLOSTRIDIUM DIFFICILE, NOT SPCF RE Attending: KELLY ADAM Current LOS: 22 Anticipated DC Date: 07-23-2017 Planned Disposition: Home WITH HOME HEALTH Primary Insurance: [employer] HMO PLANNED EXTERNAL PROVIDER: [facility] Discharge Planning Comments: CM RECEIVED DISCHARGE AND HOME HEALTH ORDER, MET WITH PT IN ROOM. PT REPORTS HE WANTS [facility]; CM EXPLAINED THAT [facility] IS "BOOKED UP UNTIL NEXT TUESDAY" AND THAT TUESDAY NEXT WEEK WAS THE EARLIEST HE WOULD BE SEEN. PT DID NOT WANT TO USE ANY OTHER HOME HEALTH COMPANY. CHOICE SIGNED. PT HAS WALKER THAT WAS DELIVERED FROM [facility] IN ROOM. PT DENIES FURTHER DISCHARGE NEEDS AND ASKED CM FOR LARGE CUP OF ICE WATER. CM EXPLAINED THAT PT IS ON FLUID RESTRICTION. PT STATED HE DID NOT SEE A NEED FOR THE RESTRICTION HE IS GOING HOME TOMORROW ANYWAY. CM NOTIFIED PT'S NURSE AND KRYSTAL PYLE, BOTH REPORT PT TO CONTINUE ON FLUID RESTRICTION. PT NOTIFIED, PT REPORTS HE HAS NOT HAD ANYTHING FLUID EXCEPT A CUP OF ICE SINCE LUNCH. CM NOTIFIED BEDSIDE NURSE OF PT'S STATEMENT AND REQUEST. CM CALLED [facility], , SPOKE TO YULY WHO ACCEPTED PT FOR HOME HEALTH ADMISSION ON NEXT TUESDAY; PT MAY HAVE A COPAY FOR HOME HEALTH, YULY WILL CHECK WITH PT'S INSURANCE AND DISCUSS THIS WITH PT. CM FAXED REFERRAL TO [facility] AT [phone]. FOR DISCHARGE, NOTIFY [facility] AT [phone]. FAX DISCHARGE INFORMATION TO [facility] AT [phone]. [facility] Floorperson: Bryce Menendez
[2017-07-22 19:00] VITALS: BP 109/69
--- NOTE | 2017-07-22 19:42 | NUR ---
PT IN BED. DENIES NEEDS AT THIS TIME. INFORMED PT ABOUT PENDING DISCHARGE AND HE SEEMED CONCERNED.
[2017-07-23] VITALS: BP 123/79
--- NOTE | 2017-07-23 02:05 | NUR ---
PT LYING IN BED ON HIS BACK, HOB 35-40 DEGREES, EYES CLOSED, RESPIRATIONS EVEN AND UNLABORED. CONTINUE TO MONITOR CLOSELY. BED LOW, CALL LIGHT IN REACH, SIDE RAILS X 2.
[2017-07-23 04:00] VITALS: BP 112/76
--- NOTE | 2017-07-23 07:32 | NUR ---
PT SUPPOSE TO BE DISCHARGED YESTERDAY BUT REFUSED. PT IS NOT WANTING TO BE DISCHARGED STILL BUT VERBALIZED UNDERSTANDING AND IS HAVING HIS SON PICK HIM UP. D/C PTS L.ARM MIDLINE IV WITH CATH TIP FULLY INTACT. PT WANTS TO EAT AND THEN HAVE HIS SON COME FOR TRANSPORTATION AND GO OVER DISCHARGE PAPERS AT THAT TIME. WILL HELP PT COLLECT BELONGINGS AND GET DRESSED THEN GO OVER PAPERWORK. NO CURRENT NEEDS AT THIS TIME. WILL CPOC.
[2017-07-23 08:00] VITALS: BP 118/81
--- NOTE | 2017-07-23 08:49 | NUR ---
DISCHARGE TEACHING PROVIDED TO PT AND SON. PT VERBALIZED UNDERSTANDING BUT IS NOT HAPPY ABOUT LEAVING AND STATES HIS PAIN IS NOT GONNA BE CONTROLLED. BELONGINGS COLLECTED AND W/C CALLED FOR. HARD SCRIPT FOR TRAMADOL GIVEN WITH DISCHARGE PAPERS. NO FURTHER NEEDS.
--- NOTE | 2017-07-25 13:24 | NUR ---
Patient Name: BRYCE GOTTI Encounter No: [id number] : 1970 Primary Insurance: [employer]MO Anticipated DC Date: 07-23-2017 Planned Disposition: Home with Home Health External Planned Provider: [facility] DCP follow-up note: CM REVIEWED CHART, PT DISCHARGED HOME TUESDAY, CM NOTIFIED MARICRUZ AT [facility], . CM FAXED DISCHARGE INFORMATION TO [facility] AT [phone]. Interactive Graphic Designer: Bryce Menendez
== END 2017-07-23 09:11 | disposition home health service (06) | DRG 871 ==
LOC: D.ER 15:44 → D.ICU 21:08 → OBSVTIME 21:08 → D.M2 21:09 → D.ICU 21:09 → D.M2 07-04 15:58
PROVIDERS: Emergency Medicine; Family Medicine; General Practice; Internal Medicine; Internal Medicine Gastroenterology; Internal Medicine Hematology & Oncology; Internal Medicine Nephrology; Nurse Practitioner Acute Care; Radiology Diagnostic Radiology; Specialist; ADMIT Family Medicine
PROC: 0DBM8ZX Excision of Descending Colon, Via Natural or Artificial Opening Endoscopic, Diagnostic (ICD-10-PCS; 2017-07-07)
PROC: 0DBN8ZX Excision of Sigmoid Colon, Via Natural or Artificial Opening Endoscopic, Diagnostic (ICD-10-PCS; 2017-07-07)
PROC: 0W9G3ZZ Drainage of Peritoneal Cavity, Percutaneous Approach (ICD-10-PCS; principal; 2017-07-07 09:00)
PROC: 0W9G3ZZ Drainage of Peritoneal Cavity, Percutaneous Approach (ICD-10-PCS; 2017-07-13)
PROC: 05HC33Z Insertion of Infusion Device into Left Basilic Vein, Percutaneous Approach (ICD-10-PCS; 2017-07-15)
PROC: B54NZZA Ultrasonography of Left Upper Extremity Veins, Guidance (ICD-10-PCS; 2017-07-15)
PROC: B51V1ZZ Fluoroscopy of Other Veins using Low Osmolar Contrast (ICD-10-PCS; 2017-07-20)
PROC: 0FB13ZX Excision of Right Lobe Liver, Percutaneous Approach, Diagnostic (ICD-10-PCS; 2017-07-20)
DX: A41.9 Sepsis, unspecified organism (principal); K76.7 Hepatorenal syndrome; N17.9 Acute kidney failure, unspecified; E87.1 Hypo-osmolality and hyponatremia; D68.59 Other primary thrombophilia; K51.90 Ulcerative colitis, unspecified, without complications; A04.72 Enterocolitis due to Clostridium difficile, not specified as recurrent; S32.019A Unspecified fracture of first lumbar vertebra, initial encounter for closed fracture; S32.029A Unspecified fracture of second lumbar vertebra, initial encounter for closed fracture; S32.039A Unspecified fracture of third lumbar vertebra, initial encounter for closed fracture; F10.21 Alcohol dependence, in remission; I12.9 Hypertensive chronic kidney disease with stage 1 through stage 4 chronic kidney disease, or unspecified chronic kidney disease; N18.9 Chronic kidney disease, unspecified; D63.8 Anemia in other chronic diseases classified elsewhere; K64.8 Other hemorrhoids; K57.90 Diverticulosis of intestine, part unspecified, without perforation or abscess without bleeding; D18.09 Hemangioma of other sites; K73.2 Chronic active hepatitis, not elsewhere classified; K76.0 Fatty (change of) liver, not elsewhere classified; H57.11 Ocular pain, right eye; W19.XXXA Unspecified fall, initial encounter

== ENCOUNTER 2017-09-08 12:49 | Emergency (ER) | payer BC ==
[2017-07-01 13:45] VITALS: BMI 33.7
[~2017-09-08 12:49] MED LIST changes: +ALDACTONE25 MG PO; +AZULFIDINE500 MG PO; +BUMEX2 MG PO; +PEPCID20 MG PO; +PREDNISONE10 MG PO
[2017-09-08 13:47] LABS: EOSINOPHILS 0.8 % (0-7); HEMATOCRIT 33.5 % (42.0-54.0); HEMOGLOBIN 11.3 g/dL (13.5-17.5); IMMATURE GRANULOCYTES 0.1 % (0-5); LYMPHOCYTES 37.2 % (15-50); MCH 32.6 pg (26.0-34.0); MCHC 33.7 g/dL (31.0-37.0); MCV 96.5 fL (80.0-100.0); MEAN PLATELET VOLUME 9.4 fL (7.4-10.4); MONOCYTES 11.3 % (2-11); NEUTROPHILS 49.6 % (40-80); PLATELET COUNT 225 10x3/uL (130-400); RBC 3.47 10x6/uL (4.20-6.10); RDW 14.9 % (11.5-14.5); WBC 9.9 10x3/uL (4.8-10.8)
[2017-09-08 14:02] LABS: ALBUMIN 2.9 g/dL (3.4-5.0); ALKALINE PHOSPHATASE 192 U/L (46-116); BILIRUBIN - TOTAL 2.24 mg/dL (0.2-1.3); CALC OSMOLALITY 267 mosm/kg (275-300); CALCIUM 9.2 mg/dL (8.5-10.1); CARBON DIOXIDE 22.3 mmol/L (21.0-32.0); CHLORIDE - SERUM 101 mmol/L (98-107); CREATININE - SERUM 0.8 mg/dL (0.6-1.3); GLUCOSE 93 mg/dL (74-106); POTASSIUM - SERUM 3.6 mmol/L (3.5-5.1); PROTEIN - SERUM 7.8 g/dL (6.4-8.2); SODIUM 135 mmol/L (136-145); UREA NITROGEN 8 mg/dL (7-18); eGFR NON AFRICAN AMERICAN > 90 mL/min (90-120)
[2017-09-08 14:14] LABS: ALT (SGPT) 27 U/L (10-68); LIPASE 575 U/L (73-393)
[2017-09-08 14:20] LABS: APPEARANCE CLOUDY (CLEAR); BILIRUBIN NEGATIVE (NEGATIVE); COLOR DK YELLOW (YELLOW); GLUCOSE NEGATIVE (NEGATIVE); KETONE NEGATIVE (NEGATIVE); NITRITE NEGATIVE (NEGATIVE); PROTEIN NEGATIVE (NEGATIVE); SPECIFIC GRAVITY 1.015 (1.005-1.020); WHITE CELLS - URINE OCC /hpf (0-5)
[2017-09-08 14:21] LABS: BACTERIA FEW /hpf (NONE SEEN); EPITHELIAL CELL CAST RARE /lpf (NONE SEEN); EPITHELIAL CELLS 0-5 /hpf (0-5); HYALINE CAST 0-5 /lpf (NONE SEEN); MUCUS <1+ /lpf (NONE SEEN)
[2017-09-08 14:28] LABS: UDS - AMPHET NEGATIVE QUAL (NEGATIVE); UDS - BARB NEGATIVE QUAL (NEGATIVE); UDS - BENZO POSITIVE QUAL (NEGATIVE); UDS - COCAINE NEGATIVE QUAL (NEGATIVE); UDS - OPIATE NEGATIVE QUAL (NEGATIVE); UDS - PCP NEGATIVE QUAL (NEGATIVE); UDS - THC NEGATIVE QUAL (NEGATIVE)
== END 2017-09-08 15:25 | disposition home or self-care (01) ==
LOC: D.ER 12:49
PROVIDERS: Emergency Medicine
DX: F10.10 Alcohol abuse, uncomplicated (principal); K74.60 Unspecified cirrhosis of liver; F17.200 Nicotine dependence, unspecified, uncomplicated; I10 Essential (primary) hypertension; R00.0 Tachycardia, unspecified

== ENCOUNTER 2017-09-19 09:58 | Day surgery (SDC) | payer BC ==
[~2017-09-19] VITALS: Ht 182.9 cm; Wt 87.3 kg
[2017-09-19 11:46] LABS: BASOPHILS 0.3 % (0-2); EOSINOPHILS 0 % (0-7); HEMATOCRIT 32.1 % (42.0-54.0); HEMOGLOBIN 11.3 g/dL (13.5-17.5); IMMATURE GRANULOCYTES 0.3 % (0-5); LYMPHOCYTES 22.5 % (15-50); MCH 32.9 pg (26.0-34.0); MCHC 35.2 g/dL (31.0-37.0); MCV 93.6 fL (80.0-100.0); MEAN PLATELET VOLUME 9.5 fL (7.4-10.4); NEUTROPHILS 64.9 % (40-80); RBC 3.43 10x6/uL (4.20-6.10); RDW 15.9 % (11.5-14.5); WBC 7.8 10x3/uL (4.8-10.8)
[2017-09-19 11:48] LABS: PLATELET COUNT 134 10x3/uL (130-400)
[2017-09-19 12:09] LABS: ANION GAP 12.4 mmol/L (8-16); CARBON DIOXIDE 32.3 mmol/L (21.0-32.0); CREATININE - SERUM 1.3 mg/dL (0.6-1.3)
[2017-09-19 12:13] LABS: INR 1.96 (0.85-1.17); PROTIME 21.8 SECONDS (11.6-15.0)
[2017-09-19 12:14] LABS: APTT 33.9 SECONDS (22.8-39.4); POTASSIUM - SERUM 2.7 mmol/L (3.5-5.1)
[2017-09-19 12:46] VITALS: BP 143/87; Ht 182.9 cm; Wt 87.3 kg
[2017-09-19] MEDS ORDERED: OMEPRAZOLE40 MG PO (14:51)
[2017-09-19] MEDS ORDERED: NEURONTIN 300300 MG PO (15:06)
[2017-09-19] MEDS ORDERED: FUROSEMIDE20 MG PO (15:41)
--- NOTE | 2017-09-19 15:52 | NUR ---
DISCHARGE INSTRUCTIONS REVIEWED WITH PATIENT AND MOTHER. PATIENT INSTRUCTED TO CALL WHEN HE GETS HOME IF THERE ARE ANY MEDICATIONS THAT HE CURRENTLY HAS BEEN TAKING THAT ARE NOT ON THE DISCHARGE MEDICATION LIST. PATIENT INSTRUCTED DR TEJADA DOES NOT WANT HIM TAKING BUMEX BUT DOES WANT HIM TAKING FUROSEMIDE/LASIX AND SPIRONOLACTONE/ALDACTONE. PATIENT STATES UNDERSTANDING. PATIENT WAS A LITTLE UNSURE IF THERE WERE OTHER HOME MEDICATIONS THAT DID NOT MAKE IT ONTO OUR LIST TODAY SO PATIENT IS TO CALL WITH HOME MEDICATIONS ONCE HE GETS HOME. DISCHARGED HOME VIA WHEELCHAIR TO PRIVATE VEHICLE WITH MOTHER
--- NOTE | 2017-09-22 11:51 | OP ---
PATIENT NAME: ALIS GOTTI JR MEDICAL RECORD: [id number] :68 LOCATION:[facility] ADMISSION DATE: SURGEON: ALVA TEJADA DO DATE OF OPERATION: 09/19/2017 PROCEDURE: EGD with biopsies. INDICATIONS FOR PROCEDURE: Epigastric abdominal pain, upper abdominal pain, ascites, and steatosis of the liver. SCOPE: Olympus video gastroscope. MEDICATIONS: Propofol 400 mg IV per anesthesia. ESTIMATED BLOOD LOSS: Minimal. COMPLICATIONS: None. FINDINGS: Informed consent was given. The patient was made comfortable with the above medication. After reaching an adequate level of sedation by slow IV push, the patient was placed on his left side. The endoscope was then advanced under direct visualization through the mouth to the second portion of duodenum. The upper third of the esophagus appeared normal. In middle and distal thirds of the esophagus, there were grade II esophageal varices without bleeding stigmata. No banding was performed on today's examination. At the GE junction, there was mild LA class C reflux-induced esophagitis characterized by esophageal breaks in the mucosa across gastric folds. The endoscope was advanced beyond the GE junction into the stomach and retroflexed to view the cardia, where a small sliding hiatal hernia could be seen. In fundus and body of the stomach, there were few benign-appearing fundic gland-type polyps. In the body and antrum of the stomach, there was congestion and edema consistent with portal hypertensive gastropathy. A single biopsy was taken in the antrum to submit for histology and to rule out H. pylori. The endoscope was advanced beyond the pylorus and into the duodenum, where the bulb and second portion of the duodenum appeared normal. The endoscope was then withdrawn from the patient. The patient tolerated the procedure well and there were no complications. IMPRESSION: 1. LA class C reflux-induced esophagitis. 2. Small sliding hiatal hernia. 3. Benign-appearing fundic gland polyps in fundus and body of the stomach. 4. Portal hypertensive gastropathy. PLAN AND RECOMMENDATIONS: 1. Discharge home when recovery parameters are met. 2. GERD and low-sodium diet with reflux precautions. 3. Continue current medications including omeprazole 40 mg daily. 4. Recall EGD in one year for surveillance of varices. 5. Follow up in GI clinic as scheduled. TRANSINT:[id number] Voice Confirmation ID: [id number] DOCUMENT ID: [id number] OPERATIVE REPORT [id number] ALIS GOTTI,ALVA Way DO at 1151 CC: [id number] DICTATION DATE: 09/19/17 1403 MECHATRONICS TECHNICIAN: 09/19/17 1501 [facility] 09/19/17 [place] [id number] [place] [id number]
== END 2017-09-19 15:52 | disposition home or self-care (01) ==
LOC: D.OPS 09:58
PROVIDERS: Internal Medicine Gastroenterology
DX: R10.13 Epigastric pain (principal); R18.8 Other ascites; K21.0 Gastro-esophageal reflux disease with esophagitis; K76.6 Portal hypertension; K31.89 Other diseases of stomach and duodenum; K44.9 Diaphragmatic hernia without obstruction or gangrene; K31.7 Polyp of stomach and duodenum; Z01.812 Encounter for preprocedural laboratory examination; I12.9 Hypertensive chronic kidney disease with stage 1 through stage 4 chronic kidney disease, or unspecified chronic kidney disease; N18.9 Chronic kidney disease, unspecified